=== PATIENT | female | born 1970 | race Caucasian/White ===

== ENCOUNTER 2024-03-08 15:46 | Outpatient (OUT) | payer OTHER, SELFPAY ==
--- NOTE | 2024-03-08 15:54 | MM_ITS ---
Patient Name: SANTA PETERSEN MR#: [id number] : 1970 Exam Date: 03/08/2024 Ordering Doctor: DR JERI HURLEY RADIOLOGY REPORT PROCEDURE: MM TOMOSYNTHESIS SCREENING BI COMPARISON: MG MAMM SCREEN 3D SAMRA CAD, 04/02/2021. MG MAMM SCREEN SAMRA W CAD, 03/19/2020. MG MAMM SCREEN SAMRA W CAD, 09/14/2018. MAMMO SAMRA SCREEN, 03/08/2011. INDICATIONS: Screening Calculator Name NCI Breast Cancer Risk Assessment Tool 5 Year Breast Cancer Risk 2.10% Lifetime Breast Cancer Risk 15.00% Personal Breast Cancer No Personal Ovarian Cancer No Treatments None Family Cancers Mother with breast cancer at age 76; Aunt-maternal with breast cancer at age ~42; Father with prostate/skin cancer at age 65. LOCATION: [facility] BREAST COMPOSITION: The breasts are heterogeneously dense,which may obscure small masses. FINDINGS: DIAGNOSTIC CATEGORY 1--NEGATIVE. RIGHT BREAST: No significant suspicious finding. No significant change has occurred. LEFT BREAST: No significant suspicious finding. No significant change has occurred. RECOMMENDATIONS: ROUTINE MAMMOGRAM AND CLINICAL EVALUATION IN 12 MONTHS. PLEASE NOTE: A NORMAL MAMMOGRAM DOES NOT EXCLUDE THE POSSIBILITY OF BREAST CANCER. A CLINICALLY SUSPICIOUS PALPABLE LUMP SHOULD BE BIOPSIED. Dictated by: Juno Painting M.D. on 03/09/2024 at 09:34 Approved by: Juno Painting M.D. on 03/09/2024 at 09:36
== END 2024-03-08 15:47 | disposition home or self-care (01) ==
LOC: MAMMO 15:49
PROVIDERS: PCP Family Medicine; Visit Provider Family Medicine
DX: Z12.31 Encounter for screening mammogram for malignant neoplasm of breast (principal); Z80.3 Family history of malignant neoplasm of breast; Z80.42 Family history of malignant neoplasm of prostate; Z80.8 Family history of malignant neoplasm of other organs or systems
CPT/HCPCS: 77063; 77067

== ENCOUNTER 2025-04-11 15:17 | Outpatient (OUT) | payer OTHER, SELFPAY ==
--- NOTE | 2025-04-11 15:19 | MM_ITS ---
Patient Name: SANTA PETERSEN MR#: [id number] : 1970 Exam Date: 04/11/2025 Ordering Doctor: KIRK OROZCO RADIOLOGY REPORT PROCEDURE: MM TOMOSYNTHESIS SCREENING BI COMPARISON: MM TOMOSYNTHESIS SCREENING BI, 03/08/2024. MG MAMM SCREEN 3D SAMRA CAD, 04/02/2021. MG MAMM SCREEN SAMRA W CAD, 03/19/2020. MAMMO SAMRA SCREEN, 03/08/2011. INDICATIONS: Screening Calculator Name NCI Breast Cancer Risk Assessment Tool 5 Year Breast Cancer Risk 2.20% Lifetime Breast Cancer Risk 14.80% Personal Breast Cancer No Personal Ovarian Cancer No Treatments None Family Cancers Mother with breast cancer at age 76; Aunt-maternal with breast cancer at age ~42; Father with prostate/skin cancer at age 65. LOCATION: [facility] BREAST COMPOSITION: The breasts are heterogeneously dense, which may obscure small masses. FINDINGS: RIGHT BREAST: No significant suspicious finding. LEFT BREAST: No significant suspicious finding. DIAGNOSTIC CATEGORY 1--NEGATIVE. NO CHANGE FROM COMPARISON ASSESSMENT. RECOMMENDATIONS: ROUTINE MAMMOGRAM AND CLINICAL EVALUATION IN 12 MONTHS. Dictated by: Omar Almendarez MD on 04/11/2025 at 16:22 Approved by: Omar Almendarez MD on 04/11/2025 at 16:23
--- OUTSIDE RECORDS SUMMARY | 2025-04-11 15:20 | XMS_ITS | Clinical Summary ---
Author Organization [place] [facility] Address [facility] [id number] [address] [place] [address] Care Team Providers Care Group Account Director Name Role Phone GennyHeber garcia Primary Care Provider + [phone] Allergies Active AllergyReactionsCriticalityNoted NrgoVptjdqinQzsqudmllebtn42/29/2022 Medications MedicationSigDispense QuantityRefillsLast FilledStart DateEnd DateStatus cetirizine (ZyrTEC) 10 mg tablet daily.Active omeprazole (PriLOSEC) 20 mg capsule Take 1 capsule (20 mg total) by mouth in the morning. 90 capsule 4Active rimegepant (NURTEC ODT) 75 mg tablet,disintegrating Indications:Migraine with aura and without status migrainosus, not intractable Dissolve 1 tablet on tongue daily as needed (migraine). 2 tablet 5Active clobetasoL (TEMOVATE) 0.05 % external solution Indications:PsoriasisAPPLY TOPICALLY TO THE SCALP TWICE DAILY IN THE MORNING AND IN THE EVENING 25 mL 5Active ubrogepant (UBRELVY) 100 mg tablet Indications:Migraine with aura and without status migrainosus, not intractable Take 1 tablet by mouth daily as needed (migraine). 16 tablet 5Active ubrogepant (UBRELVY) 100 mg tablet Indications:Migraine with aura and without status migrainosus, not intractable Take 1 tablet by mouth daily as needed (migraine). 1 tablet Discontinued(Reorder) clobetasoL (TEMOVATE) 0.05 % external solution Indications:PsoriasisAPPLY TOPICALLY TO THE SCALP TWICE DAILY IN THE MORNING AND IN THE EVENING 25 mL 5105/16/2024Discontinued Active Problems ProblemNoted DateDiagnosed VixfSoebhrytw27/29/2023Dysfunctional uterine bleeding 04/08/2022llergic qkjlzhle35/29/2919Qzpnxxtgwuudffpbgdpr86/29/2022eactive airway wnbfpux5404/08/2022Uterine /29/2022soriasis of scalp03/06/2021 Vitamin D /31/2018 Encounters DateTypeDepartmentCare CvkbPkyqvwojacn58/15/2025Refill [facility] [address] [place] [address] Heber Leon, DO Migraine with aura and without status migrainosus, not fbduyzyudlt47/06/2025 Refill [facility] [address] [place] [address] Heber Leon, DO Elnyzpoaz04/30/2025Results Follow-Up [facility] [address] [place] [address] Mikel Storm, VERTICAL PUNCH OPERATOR-ASSISTANT CITY ATTORNEY CBC without diff, Comprehensive metabolic panel, Lipid profile, Thyroid profile includes TSH FT41 3:30 PM EDTOffice Visit [facility] [address] [place] [address] Mikel Storm, VERTICAL PUNCH OPERATOR-ASSISTANT CITY ATTORNEY Well adult exam (Primary Dx); Blood tests for routine general physical examination; Encounter for screening mammogram for malignant neoplasm of breast; Psoriasis; Ylprrjbqlmfjqjpsmbux39/29/5016Wivvec99/15/2025Refill [facility] [address] [place] [address] Heber Leon, DO Psoriasisfrom Last 3 Months Immunizations ImmunizationAdministration DatesNext TgrEcdl3611/30/2018,08/24/2009 Family History Medical HistoryRelationNameCommentsObesityDaughterPolycystic ovary syndrome DaughterChronic infectionsFatherfrom perforated bowel and 2 years later at age 85HypertensionFatherProstate cancerFatherSkin cancerFatherArthritisMother Breast cancerMotherCOPDMotherCrohn's diseaseMotherSarcoidosisMotherFibromyalgia Sister 1No Known ProblemsSister 2No Known ProblemsSonRelationNameStatusComments DaughterAliveFatherDeceasedMotherAliveSister 1AliveSister 2AliveSonAlive Social History Tobacco UseTypesPacks/DayYears UsedDateSmoking Tobacco: FormerCigarettes0.520 04/10/1989 - 04/10/2009Smokeless Tobacco: Never Tobacco Cessation:Counseling Given: Not Answered Alcohol UseStandard Drinks/WeekCommentsYes5 (1 standard drink = 0.6 oz pure alcohol)a weekCLEVELAND CL[facility] UtilitiesAnswerDate RecordedIn the past 12 months has the [employer], gas, oil, or water [employer] threatened to shut off services in your home?No03/01/2024Social Connection and Isolation PanelAnswerDate RecordedIn a typical week, how many times do you talk on the phone with family, friends, or neighbors?More than three times a week04/08/2022How often do you get together with friends or relatives?More than three times a week04/08/2022How often do you attend bahai or druze services?Never2Do you belong to any clubs or organizations such as bahai groups, unions, fraternal or athletic groups, or school groups?Yes04/08/2022How often do you attend meetings of the clubs or organizations you belong to?More than 4 times per year04/08/2022re you , , , , never , or living with a partner? 04/08/2022UDIT-CAnswerDate RecordedQ1: How often do you have a drink containing alcohol?2-3 times a week04/08/2022Q2: How many drinks containing alcohol do you have on a typical day when you are drinking?1 or Q3: How often do you have six or more drinks on one occasion?Never04/08/2022verall Financial Resource Strain (CARDIA)AnswerDate RecordedHow hard is it for you to pay for the very basics like food, housing, medical care, and heating?Not hard at all 03/01/2024HQ-2AnswerDate RecordedTotal Umazf518Finbear river valley hospital [place] of Occupational Health - Occupational Stress QuestionnaireAnswerDate RecordedDo you feel stress - tense, restless, nervous, or anxious, or unable to sleep at night because yourmind is troubled all the time - these days?Not at all04/08/2022 Exercise Vital SignAnswerDate RecordedOn average, how many days per week do you engage in moderate to strenuous exercise (like a brisk walk)?0 days03/01/2024On average, how many minutes do you engage in exercise at this level?0 min 03/01/2024RAPARE - TransportationAnswerDate RecordedIn the past 12 months, has lack of transportation kept you from medical appointments or from getting medications?No03/01/2024In the past 12 months, has lack of transportation kept you from meetings, work, or from getting things needed for daily living?No 03/01/2024Housing InstabilityAnswerDate RecordedAre you worried or concerned that in the next two months you may not have stable housing that you own, rent or stay in as a part of a household?No03/01/2024hildcareAnswerDate RecordedDo problems getting summer child caregiver make it difficult for you to work or study?No 03/01/2024EmploymentAnswerDate RecordedDo you need help finding a local career center and/or a training program?No03/01/2024Hunger ScreeningAnswerDate Recorded Within the past 12 months we worried whether our food would run out before we got money to buy more.Never True03/08/2025Within the past 12 months the food we bought just didn't last and we didn't have money to get more.Never True 03/08/2025Purpose - LifeAnswerDate RecordedI have a purpose and direction in my life.Strongly Agree03/01/2024CommentsUnknownSex and Gender Information ValueDate RecordedSex Assigned at BirthNot on fileLegal RotBpncef30/06/2015 11:33 AM EDTGender IdentityNot on fileSexual OrientationNot on file Last Filed Vital Signs Vital SignReadingTime TakenCommentsBlood Ewurefwd052/7003/08/2025 3:25 PM EDT Fvibf103903/08/2025 3:25 PM UZDQirvzjrlvnm80.3 ??C (97.3 ??F)03/08/2025 3:25 PM EDTRespiratory Oxjm5408 3:25 PM EDTOxygen Uypdpoaqum300%03/08/2025 3:25 PM EDTInhaled Oxygen Concentration--Khjgym69.5 kg (166 lb 6.4 oz)03/08/2025 3:25 PM YTCIsthcf290.6 cm (5' 5.98 )03/08/2025 3:25 PM EDTBody Mass Index26.87 03/08/2025 3:25 PM EDT Plan of Treatment DateTypeDepartmentCare Team (Latest Contact Info)Iagcztoyunr39/14/2026 3:30 PM EDTOffice Visit [facility] [address] [place] [address] Heber Leon, DO [address] [facility], [place] [address] Health MaintenanceDue DateLast DoneCommentsAdult BMI Follow Up Plan1987 Zoster (Shingles) Vaccine (1 of 2)2019Influenza Flglpfm1101/09/2025Mammogram dult BMI Tptnfkuhi78Depression Screening Tobacco Mklijzxlq32olon Cancer Screening 3 Year Hdfnhatgw77TaP,Tdap and Td Vaccines (3 - Td or Tdap) , 08/24/2009Pap SmearDiscontinued Medical Devices Not on file Procedures Procedure NamePriorityDate/TimeAssociated DiagnosisCommentsTHYROID PROFILE INCLUDES TSH BT3Yqqyggn03/29/2025 3:44 PM EDT Blood tests for routine general physical examination LIPID NKWOLBAEnhbztp60/29/2025 3:44 PM EDT Blood tests for routine general physical examination COMPREHENSIVE METABOLIC VNHVYCpwbkio35/29/2025 3:44 PM EDT Blood tests for routine general physical examination CBC (NO DIFF)Gweqotq0103/08/2025 3:44 PM EDT Blood tests for routine general physical examination MAMM SCREENING BILATERAL W KQSDxrizny60/30/2024 1:16 PM EDT Encounter for screening mammogram for malignant neoplasm of breast COLOGUARD NON-XGUFJQTRKOaipplm15/03/2024 8:10 AM EDT Special screening for malignant neoplasm of colon Screen for colon cancer from Last 3 Months or Most Recently Relevant to Health Maintenance Results * (ABNORMAL) Thyroid profile includes TSH FT4 (03/08/2025 3:44 PM EDT)Component ValueRef RangeTest MethodAnalysis TimePerformed AtPathologist SignatureFREE T4 0.700.61 - 1.60 ng/dL03/08/2025 10:46 PM [facility] LABORATORYTSH4.75(H)0.49 - 4.67 uIU/mL03/08/2025 10:46 PM [facility] LABORATORYSpecimen (Source)Anatomical Location / LateralityCollection Method / VolumeCollection TimeReceived TimeBloodVenous blood / Unknown 03/08/2025 3:44 PM EDT1 3:44 PM EDT Narrative Authorizing ProviderResult TypeResult StatusMikel Storm VERTICAL PUNCH OPERATOR-CNPLAB BLOOD ORDERABLESFinal ResultPerforming OrganizationAddressCity/State/ZIP CodePhone Number [facility] [address] [place] [address], [place] [phone] * CBC without diff (03/08/2025 3:44 PM EDT)ComponentValueRef RangeTest Method Analysis TimePerformed AtPathologist SignatureWBC5.24 - 11 x10E9/L1 10:18 PM [facility] LABORATORYRBC Count4.413.8 - 5.2 X10E12/L 03/08/2025 10:18 PM [facility] PDLWRZBKVUQuchldohqv98.111.7 - 15.5 g/dL03/08/2025 10:18 PM [facility] LABORATORYHematocrit 40.835 - 47 %03/08/2025 10:18 PM [facility] IYLBODGLMQVFK4823 - 100 fL03/08/2025 10:18 PM [facility] OTKTWJTCVFQTE72.927 - 34 pg03/08/2025 10:18 PM [facility] XVSPHPJOGBPXRV34.432 - 36 g/dL03/08/2025 10:18 PM [facility] UQVUODRXTYFOJ75.511.5 - 15 %03/08/2025 10:18 PM [facility] LABORATORYPlatelet Rkilh971 150 - 450 X10E9/L1 10:18 PM [facility] LABORATORYMPV 8.17 - 12 fL03/08/2025 10:18 PM [facility] LABORATORYSpecimen (Source)Anatomical Location / LateralityCollection Method / VolumeCollection TimeReceived TimeBloodVenous blood / Yihrnok7303/08/2025 3:44 PM EDT1 3:44 PM EDT Narrative Authorizing ProviderResult TypeResult StatusKyle D Krotzer VERTICAL PUNCH OPERATOR-CNPLAB BLOOD ORDERABLESFinal ResultPerforming OrganizationAddressCity/State/ZIP CodePhone Number [facility] [address] [place] [address], * (ABNORMAL) Lipid profile (03/08/2025 3:44 PM EDT)ComponentValueRef RangeTest MethodAnalysis TimePerformed AtPathologist XpdccznrsJKMCEOXCMOC818(H)150 - 200 mg/dL03/08/2025 10:33 PM [facility] SUKPPNZTWNKLJHVNWHISFY614 27 - 150 mg/dL03/08/2025 10:33 PM [facility] LABORATORYHDL ZCBCYKAQRGT62>39 mg/dL03/08/2025 10:33 PM [facility] LABORATORYComment: HDL <40 mg/dL - High Risk HDL > or = 40mg/dL- Desirable HDL >60 mg/dL - Negative Risk LDL (CALC)167(H)<130 mg/dL03/08/2025 10:33 PM [facility] LABORATORYComment: LDL <100 mg/dL - Desirable LDL >160 mg/dL - High Risk CHOLESTEROL:HDL4.41.0 - 5.010 10:33 PM [facility] LABORATORYVERY LOW JASIVJASZBR536 - 30 mg/dL03/08/2025 10:33 PM [facility] LABORATORYSpecimen (Source)Anatomical Location / Laterality Collection Method / VolumeCollection TimeReceived TimeBloodVenous blood / Rfnzbad0803/08/2025 3:44 PM EDT1 3:44 PM EDT Narrative Authorizing ProviderResult TypeResult StatusKyle D Krotzer VERTICAL PUNCH OPERATOR-CNPLAB BLOOD ORDERABLESFinal ResultPerforming OrganizationAddressCity/State/ZIP CodePhone Number [facility] [address] [place] [address], * Comprehensive metabolic panel (03/08/2025 3:44 PM EDT)ComponentValueRef Range Test MethodAnalysis TimePerformed AtPathologist LvjpvodrvRZJPPO506854 - 146 mmol/L1 10:33 PM [facility] LABORATORYPOTASSIUM4.1 3.5 - 5.0 mmol/L1 10:33 PM [facility] HEZJUMDY10613 - 109 mmol/L1 10:33 PM [facility] LABORATORYCARBON IIIRNOM7532 - 32 mmol/L1 10:33 PM [facility] LABORATORYANION GKH601 - 15 mmol/L1 10:33 PM [facility] LABORATORYBLOOD UREA HFSXSYCV040 - 23 mg/dL03/08/2025 10:33 PM [facility] LABORATORYCREATININE0.680.40 - 1.00 mg/dL 03/08/2025 10:33 PM [facility] LABORATORYComment:METHOD TRACEABLE TO IDNC OMVMQNDOCYEPSRI6410 - 99 mg/dL03/08/2025 10:33 PM [facility] LABORATORYCALCIUM9.78.5 - 10.5 mg/dL03/08/2025 10:[address] LABORATORYTOTAL PROTEIN7.46.0 - 8.0 g/dL03/08/2025 10:33 PM [facility] LABORATORYALBUMIN4.83.2 - 5.3 g/dL 03/08/2025 10:33 PM [facility] LABORATORYALKALINE PHOSPHATASE 7739 - 130 U/L1 10:33 PM [facility] DBIBWYXJWVPPP86 <=41 U/L1 10:33 PM [facility] HOVJUIDOUPLQA62<=31 U/L1 10:33 PM [facility] LABORATORYBILIRUBIN,TOTAL 0.70.3 - 1.2 mg/dL03/08/2025 10:33 PM [facility] EGFR Non-Race Dependent>90>=60 ml/min/1.73sq.m1 10:33 PM [facility] LABORATORYComment: Reported eGFR is based on the CKD-EPI 2020 equation that does not use a race coefficient. Specimen (Source)Anatomical Location / LateralityCollection Method / Volume Collection TimeReceived TimeBloodVenous blood / Ekkrsqf6603/08/2025 3:44 PM EDT 03/08/2025 3:44 PM EDT Narrative Authorizing ProviderResult TypeResult StatusMikel Storm VERTICAL PUNCH OPERATOR-CNPLAB BLOOD ORDERABLESFinal ResultPerforming OrganizationAddressCity/State/ZIP CodePhone Number [facility] [address] [place] [address], * Mammography screening bilateral with CAD (03/09/2024 1:16 PM EDT)Anatomical RegionLateralityModalityBreastBilateralMammography Narrative Authorizing ProviderResult TypeResult StatusDenaminata Leon DOIMG MAMMOGRAPHY ORDERABLESFinal Result * Cologuard [facility] (12/12/2023 8:10 AM EDT)ComponentValueRef RangeTest MethodAnalysis TimePerformed AtPathologist SignatureEXTERNAL COLOGUARDNegative Byxpksju83/07/2024 6:34 PM EDTEXQwikwire (CLIA #:[id number]) Comment: NEGATIVE TEST RESULT. A negative Cologuard result indicates a low likelihood that a colorectal cancer (CRC) or advanced adenoma (adenomatous polyps with more advanced pre-malignant features) ??is present. The chance that a person with a negative Cologuard test has a colorectal cancer is less than 1in 1500 (negative predictive value >99.9%) or has an advanced adenoma is less than 5.3% (negative predictive value 94.7%). These data are based on a prospective cross-sectional study of 10,000individuals at average risk for colorectal cancer who were screened with both Cologuard and colonoscopy. (Timmy Haji. et al, N Engl J Med 2014;370(14):1364-6795) The normal value (reference range) for this assay is negative. COLOGUARD RE-SCREENING RECOMMENDATION: Periodic colorectal cancer screening is an important part ofpreventive healthcare for asymptomatic individuals at average risk for colorectal cancer. ??Following a negative Cologuard result, the [employer] Cancer Society and U.S. Multi-Society Task Force screening guidelines recommend a Cologuard re-screening interval of 3 years. References: [employer] Society Guideline for Colorectal Cancer Screening: https://www.cancer.or g/cancer/pdcnl-tbwibu-aqlhwq/lgdwfcdnb-qqxjdcxea-mxvblxg/acs-recommendations.htm autumn HOGAN, Jairo VAN, Abby SKAGGS, Colorectal Cancer Screening: Recommendations for Physicians and Patients from the U.S. Multi-Society Task Force on Colorectal Cancer Screening , Am J Gastroenterology 2017; 112:0325-2373. TEST DESCRIPTION: Composite algorithmic analysis of stool DNA-biomarkers with hemoglobin immunoassay. ?? Quantitative values of individual biomarkers are not reportable and are not associated with individual biomarker result reference ranges. Cologuard is intended for colorectal cancer screening ofadults of either sex, 45 years or older, who are at average-risk for colorectal cancer (CRC). Cologuard has been approved for use by the U.S. FDA. The performance of Cologuard was established in a cross sectional study of average-risk adults aged 50-84. Cologuard performance in patients ages 45 to 49 years was estimated by sub-group analysis of near-age groups. Colonoscopies performed for a positive result may find as the most clinically significant lesion: colorectal cancer [4.0%], advanced adenoma (including sessile serrated polyps greater than or equal to 1cm diameter) [20%] or non- advanced adenoma [31%]; or no colorectal neoplasia [45%]. These estimates are derived from a prospective cross-sectional screening study of 10,000 individuals at average risk for colorectal cancer who were screened with both Cologuard and colonoscopy. (Timmy Haji. et al, N Engl J Med 2014;370(14):3213-6103.) Cologuard may produce a false negative or false positive result (no colorectal cancer or precancerous polyp present at colonoscopy follow up). A negative Cologuard test result does not guarantee the absence of CRC or advanced adenoma (pre-cancer). The current Cologuard screening interval is every 3 years. ([employer] Society and U.S. Multi-Society Task Force). Cologuard performance data in a 10,000 patient pivotal study using colonoscopy as the reference method can be accessed at the following location: www.[employer].Wantr/results. Additional description of the Cologuard test process, warnings and precautions can be found at www.[employer]asty[employer].com. Specimen (Source)Anatomical Location / LateralityCollection Method / Volume Collection TimeReceived TimeStool specimen (specimen)Rectum structure / Unknown 12/12/2023 8:10 AM EDT12/14/2023 11:20 AM EDT Narrative Authorizing ProviderResult TypeResult StatusDolly Leiva VERTICAL PUNCH OPERATOR-FNPLAB ORDERABLES Final ResultPerforming OrganizationAddressCity/State/ZIP CodePhone Number [employer] (CLIA #:[id number]) [place] [address], from Last 3 Months or Most Recently Relevant to Health Maintenance Insurance Care Teams Team MemberRelationshipSpecialtyStart DateEnd Date Heber Leon DO [address], [place] [address] PCP - GeneralFamily Usrswrnk60/25/22
--- OUTSIDE RECORDS SUMMARY | 2025-04-11 15:20 | XMS_ITS | Clinical Summary ---
Author Organization [facility] Address [address] [place] [address] Care Team Providers Care Central Sterilization Technician Name Role Phone Heber Leon MD Primary Care Provider [phone] Allergies Active AllergyReactionsCriticalityNoted DateCommentsAcetaminophenUnknown 04/08/2022 Medications MedicationSigDispense QuantityRefillsLast FilledStart DateEnd DateStatus cetirizine (ZyrTEC) 10 MG tablet Take 10 mg by mouth in the morning.Active clobetasol (Temovate) 0.05 % cream Apply 1 application topically in the morning and 1 application before bedtime. 06/12/2022ctive clobetasol (Temovate) 0.05 % external solution Apply 1 application topically in the morning and 1 application before bedtime. 12/16/2022ctive omeprazole (PriLOSEC) [address] capsule Indications:LPRD (laryngopharyngeal reflux disease)Take 1 capsule (40 mg) by mouth in the morning. Take before meals. Do not crush or chew.. 90 capsule 01/21/2023ctive famotidine (Pepcid) 20 MG tablet Indications:LPRD (laryngopharyngeal reflux disease)Take 1 tablet (20 mg) by mouth at bedtime. 90 tablet 01/21/2023ctive Active Problems ProblemNoted DateDiagnosed DateChronic drpvjnibep25/13/2023LPRD (laryngopharyngeal reflux disease)01/21/20236230Ezrtro34/29/2023llergic rhinitis 04/08/2022ysfunctional uterine jfcdcgow99/29/3752Tjugqgfeshxmkdpqnqfn45/29/2022 Reactive airway cdnepyy3604/08/2022Uterine aupymwmnl67/29/2022soriasis of scalp 03/06/2021Vitamin D /31/2018 Immunizations ImmunizationAdministration DatesNext DssDdzl6111/30/2018,08/24/2009 Family History Medical HistoryRelationNameCommentsCancerFatherDonald OchsHypertensionFather Patrick OchsAsthmaMotherLeah OchsCOPDMotherLeah OchsCancerMotherLeah OchsCrohn's diseaseMotherLeah OchsSarcoidosisMotherLeah OchsRelationNameStatusCommentsFather Patrick OchsMotherLeah Bernarda Social History Tobacco UseTypesPacks/DayYears UsedDateSmoking Tobacco: FormerCigarettes0.521 05/27/1987 - 05/11/2008Smokeless Tobacco: Never Tobacco Cessation:Counseling Given: Not Answered Alcohol UseStandard Drinks/HtrdCwkzrelkTcv63 (1 standard drink = 0.6 oz pure alcohol)CommentsUnknownSex and Gender InformationValueDate RecordedSex Assigned at BirthNot on fileLegal PzmTpnsoy21/15/2023 10:09 PM EDTGender IdentityNot on fileSexual OrientationNot on file Last Filed Vital Signs Vital SignReadingTime TakenCommentsBlood Opecktaw528/6909 3:06 PM EDT Pulse--Temperature--Respiratory Rate--Oxygen Saturation--Inhaled Oxygen Concentration--Xzgkkd61.5 kg (162 lb)01/21/2023 3:06 PM FILFeugim333.6 cm (5' 6 )01/21/2023 3:06 PM EDTBody Mass Index26.15001/21/2023 3:06 PM EDT Plan of Treatment Not on file Insurance * Guarantor: Evelyn AquinoAccount TypeRelation to PatientDate of BirthPhone Billing AddressPersonal/FmuubvAiag02/05/1971 [facility] [address] Care Teams Team MemberRelationshipSpecialtyStart DateEnd Date Heber Leon MD PCP - GeneralFamily Medicine01/21/23
--- OUTSIDE RECORDS SUMMARY | 2025-04-11 15:30 | XMS_ITS | CCD ---
Author Organization [facility] CliniSywv Care Team Providers Care Cigar Brander Name Role Phone DR EDITH MARTINEZ Attending Unavailable FURLONG, DR HEBER Khan Primary Care Unavailable MICHELLE, DR SHARMA Admitting Unavailable ZIEBER, DR JUNO Haq Consulting Unavailable MICHELLE, DR DOLLY Haq Consulting Unavailable DINAH ZAVALA Attending Unavailable LUCAS, DINAH Consulting Unavailable DINAH ZAVALA Admitting Unavailable FURLONG, DR HEBER Khan Primary Care Unavailable Furlong Heber GOLD Primary Care Provider Furlong Heber GOLD Primary Care Provider HEBER LEON Attending Unavailable PIEDADLONGHEBER Referring Unavailable FURLONG, HEBER Khan Primary Care Unavailable FURLONG, HEBER Khan Referring Unavailable FURLONG, HEBER Khan Primary Care Unavailable Furlong Heber GOLD Primary Care Provider HEBER LEON Attending Unavailable HEBER LEON Referring Unavailable FURLOCHITO, HEBER Khan Primary Care Unavailable KIRK OROZCO Attending Unavailable LUIS FERNANDONGHEBER Referring Unavailable PIEDADLONGHEBER Primary Care Unavailable Allergies Allergy ClassificationReported Allergen(s)Allergy TypeDate of OnsetReaction(s) Facility (1 source)AcetaminophenDrug AllergyThe [facility] Repository (20 sources)Acetaminophen; Translations: [ACETAMINOPHEN]Drug Lxhpakm40-93-1862 [facility] Medications Current Medications MedicationDrug Class(es)DatesSig (Normalized)Sig (Original)cetirizine hydrochloride 10 mg oral tablet (18 sources)Histamine-1 Receptor Antagonistcetirizine (ZyrTEC) 10 mg tablet daily. Activeclobetasol propionate 0.5 mg/ml topical solution (20 sources)CorticosteroidStart: 68-30-7158Kztzakjyhl 0.05 % solution Active TOPICAL June 07, 2024 12:00amStart: 03-23-2023 End: 35-78-8989cxnguyanzO (TEMOVATE) 0.05 % external solution Indications: Psoriasis APPLY TOPICALLY TO THE SCALP TWICE DAILY IN THE MORNING AND IN THE EVENING 25 mL 1 03/16/2025 ActiveStart: 06-12-2022 End: 32-44-5885qeronlhwwI (TEMOVATE) 0.05 % cream Indications: Psoriasis clobetasol 0.05 % topical cream PATY THIN LAYER EXT AA BID Strength: 0.05 % 30 g 1 06/12/2022 03/08/2025 Discontinued (Alternate therapy)omeprazole 20 mg delayed release oral capsule (11 sources)Proton Pump InhibitorStart: 34-51-5655iptl 1 capsule by mouth in the morningomeprazole (PriLOSEC) 20 mg capsule Take 1 capsule (20 mg total) by mouth in the morning. 90 capsule 2 03/01/2024 Activeondansetron 4 mg disintegrating oral tablet (1 source)Serotonin-3 Receptor AntagonistStart: 71-41-9673ztil 1 tablet by mouth every eight hours as needed for nausea and vomitingOndansetron 4 mg tablet,disintegrating Active 4 MG PO Every 8 hours as needed for nausea and vomiting 15 June 07, 2024 12:00amoseltamivir 75 mg oral capsule (1 source)Neuraminidase InhibitorStart: 44-04-6473remx 1 capsule by mouth twice dailyOseltamivir 75 mg capsule Active 75 MG PO Twice daily 10 June 07, 2024 12:00amrimegepant 75 mg disintegrating oral tablet (9 sources)Start: 11-69-8583xazbbirvmo (NURTEC ODT) 75 mg tablet,disintegrating Indications: Migraine with aura and without status migrainosus, not intractable Dissolve 1 tablet on tongue daily as needed (migraine). 2 tablet 05/13/2024 Activeubrogepant 100 mg oral tablet (9 sources)Start: 03-75-9580prbb 1 tablet by mouth once daily as needed ubrogepant (UBRELVY) 100 mg tablet Indications: Migraine with aura and without status migrainosus, not intractable Take 1 tablet by mouth daily as needed (migraine). 1 tablet 05/13/2024 Active Problems Active Problems Problem ClassificationProblemDateDocumented DateEpisodic/ChronicAsthma (18 sources)Reactive airway disease; Translations: [Unspecified asthma, uncomplicated]Onset: 429412-08-8853JpquggdLtsqvblxl of lipid metabolism (20 sources)Hypercholesterolemia; Translations: [Pure hypercholesterolemia, unspecified]Onset: 092570-19-7261KorfjaoQnxivdzvyq disorders (1 source)Laryngopharyngeal reflux; Translations: [Gastro-esophageal reflux disease without esophagitis]05-36-4653GnfkjwpQpzndxtv; including migraine (3 sources)Migraine with aura; Translations: [Migraine with aura, not intractable, without status migrainosus]Onset: hronic Nutritional deficiencies (18 sources)Vitamin D deficiency; Translations: [Vitamin D deficiency, unspecified]Onset: 567089-11-3035HclwtfbKtkwa female genital disorders (18 sources)Abnormal uterine bleeding; Translations: [Other specified abnormal uterine and vaginal bleeding]Onset: 002959-90-8827GparywaPijeu inflammatory condition of skin (19 sources)Scalp psoriasis; Translations: [Psoriasis, unspecified]Onset: 652819-37-8668AumayduZbgug inflammatory condition of skin (13 sources)Psoriasis; Translations: [Psoriasis, unspecified]26-78-4739Enxloha Other inflammatory condition of skin (1 source)Psoriasis, unspecified; Translations: [Psoriasis, unspecified]Onset: 67-30-8641DjyiaoaSohph screening for suspected conditions (not mental disorders or infectious disease) (7 sources)Encounter for screening mammogram for malignant neoplasm of breast; Translations: [Patient encounter status]Onset: 19-40-6743YfnhgzfpGnpjm skin disorders (1 source)Loss of hair; Translations: [Nonscarring hair loss, unspecified] 71-44-0751XihkuazyKjbif skin disorders (1 source)Nonscarring hair loss, unspecified; Translations: [Nonscarring hair loss, unspecified]Onset: 66-89-3373NqyrnnfySbbap upper respiratory disease (18 sources)Allergic rhinitis; Translations: [Allergic rhinitis, unspecified] Onset: 837877-87-0306NhtfinoJogcepen codes; unclassified (1 source)Family history of malignant neoplasm of breast; Translations: [FAMILY HX MALIG NEOPLASM OF BREAST]Onset: 55-38-6357ZajmwycgBbqdpxcu codes; unclassified (1 source)Family history of malignant neoplasm of prostate; Translations: [FAMILY HX MALIG NEOPLASM PROSTATE]Onset: 28-22-6957RfhltpwnDwmgzqpp codes; unclassified (1 source)Family history of malignant neoplasm of other organs or systems; Translations: [FAM HX MALIG NEOPLASM OTH ORGN/SYS]Onset: 55-21-0011Viafdudw Unclassified (2 sources)CONTACT W/AND (SUSP) EXPOS COVID-19; Translations: [CONTACT W/AND (SUSP) EXPOS COVID-19]Onset: 49-24-7629Pmjzysrsljns (1 source)wellnessOnset: 16-84-8567Pxdtz infection (1 source)COVID-19; Translations: [COVID-19]Onset: 05-22-2021 Past or Other Problems Problem ClassificationProblemDateDocumented DateEpisodic/ChronicBenign neoplasm of uterus (18 sources)Uterine leiomyoma; Translations: [Leiomyoma of uterus, unspecified] Onset: 756654-56-8380SmdepitwCtkp disorders (18 sources)Mood disordersOnset: 05-13-2024 Resolved: Other nutritional; endocrine; and metabolic disorders (1 source)Overweight; Translations: [Overweight]74-70-5374ZmuwqgscDgyof upper respiratory disease (18 sources)Dysphonia; Translations: [Dysphonia]Onset: EpisodicSpondylosis; intervertebral disc disorders; other back problems (3 sources)Neck pain; Translations: [Cervicalgia]Onset: EpisodicUnclassified (1 source)CONTACT W/AND (SUSP) EXPOS COVID-19; Translations: [CONTACT W/AND (SUSP) EXPOS COVID-19]Onset: 74-57-2178Czbgqzqwppuf (18 sources)Onset: Results Test NameValueInterpretationReference RangeFacilityCBC (NO DIFF)on 03-08-2025 Erythrocyte distribution width (RBC) [Ratio]13.5 %Fzqsnw92.5-15[facility]ulatory PPGComment on above:Performed By: #### CBC #### [facility] ([facility]) [address] [place] [address] VIRHematocrit (Bld) [Volume fraction]40.8 %Vssigh63-66SzwBkelhs Hospital Ambulatory PPGComment on above:Performed By: #### CBC #### [facility] ([facility]) [address] [place] [address] VIRHemoglobin (Bld) [Mass/Vol]14.1 g/kDXxzmva49.7-15.5PMemorial Health [facility] Ambulatory PPGComment on above:Performed By: #### CBC #### [facility] ([facility]) [address] [place] [address] VIRMCH (RBC) [Entitic mass]31.9 agIgwbcf85-20OluNskxxs Hospital Ambulatory PPGComment on above:Performed By: #### CBC #### [facility] ([facility]) [address] [place] [address] VIRMCHC (RBC) [Mass/Vol]34.4 g/cSOcgoox67-69ZxuBocwem Hospital Ambulatory PPGComment on above:Performed By: #### CBC #### [facility] ([facility]) [address] [place] [address] VIRMCV (RBC) [Entitic vol]93 sKExdmnl95-579PpuKogjgs Hospital Ambulatory PPGComment on above:Performed By: #### CBC #### [facility] ([facility]) [address] [place] [address] VIRPlatelet mean volume (Bld) [Entitic vol]8.1 fLNormal7-12 [facility] Ambulatory PPGComment on above:Performed By: #### CBC #### [facility] ([facility]) [address] [place] [address] VIRPlatelets (Bld) [#/Vol]224 10*3/hXZguukr380-960FfdLlhmjg Hospital Ambulatory PPGComment on above:Performed By: #### CBC #### [facility] ([facility]) [address] [place] [address] VIRRBC COUNT4.41 X10E12/LNormal3.8-5.2PMemorial Health System [facility] Ambulatory PPGComment on above:Performed By: #### CBC #### [facility] ([facility]) [address] [place] [address] VIRWBC (Bld) [#/Vol]5.2 10*3/Normal4-11[facility] Ambulatory PPGComment on above:Performed By: #### CBC #### [facility] ([facility]) [address] [place] [address] VIRCBC without diffon 44-05-1046Ofkalgslwyx distribution width (RBC) [Ratio]13.5 %11.5 - 15 %[facility] HospitalHematocrit (Bld) [Volume fraction]40.8 %35 - 47 %[facility] HospitalHemoglobin (Bld) [Mass/Vol]14.1 g/dL11.7 - 15.5 g/dLHocking Valley Community HospitalInterpretation and review of laboratory resultsNoWilson Medical CenterH (RBC) [Entitic mass]31.9 pg27 - 34 [facility] HospitalMCHC (RBC) [Mass/Vol]34.4 g/dL32 - 36 g/dL [facility] HospitalMCV (RBC) [Entitic vol]93 fL80 - 100 [facility]-SullivanPlatelet mean volume (Bld) [Entitic vol]8.1 fL7 - 12 [facility]-SullivanPlatelets (Bld) [#/Vol]224 10*3/uLHocking Valley Community HospitalRBC (Bld) [#/Vol] 4.41 10*6/uLHocking Valley Community HospitalWBC LM Ql (Sput)5.2PSuburban Community HospitalCOMPREHENSIVE METABOLIC PANELon 61-66-7938Ohikqps [Mass/Vol]4.8 g/dLNormal3.2-5.3PMemorial Health [facility] Ambulatory PPGComment on above:Performed By: #### CMP #### [facility] ([facility]) [address] [place] [address] VIRALP [Catalytic activity/Vol]77 U/SErdltw19-326RzcWwcucr Hospital Ambulatory PPGComment on above:Performed By: #### CMP #### [facility] ([facility]) [address] [place] [address] VIRALT [Catalytic activity/Vol]23 U/LNormal<=31PMemorial Health System [facility] Ambulatory PPGComment on above:Performed By: #### CMP #### [facility] ([facility]) [address] [place] [address] VIRAnion gap [Moles/Vol]10 mmol/LNormal5-15ProMercy Health St. [facility] Ambulatory PPGComment on above:Performed By: #### CMP #### [facility] ([facility]) [address] [place] [address] VIRAST [Catalytic activity/Vol]19 U/LNormal<=41[facility] Ambulatory PPGComment on above:Performed By: #### CMP #### [facility] ([facility]) [address] [place] [address] VIRBilirubin [Mass/Vol]0.7 mg/dLNormal0.3-1.2PMemorial Health [facility] Ambulatory PPGComment on above:Performed By: #### CMP #### [facility] ([facility]) [address] [place] [address] VIRCalcium [Mass/Vol]9.7 mg/dLNormal8.5-10.5PMemorial Health System [facility] Ambulatory PPGComment on above:Performed By: #### CMP #### [facility] ([facility]) [address] [place] [address] VIRChloride [Moles/Vol]104 mmol/QJjzxzf28-463HhpOkgcqq Hospital Ambulatory PPGComment on above:Performed By: #### CMP #### [facility] ([facility]) [address] [place] [address] VIRCO2 [Moles/Vol]27 mmol/KMinmsf21-63PgwGzmdqs Hospital Ambulatory PPGComment on above:Performed By: #### CMP #### [facility] ([facility]) [address] [place] [address] VIRCreatinine [Mass/Vol]0.68 mg/dLNormal0.40-1.00[facility] Ambulatory PPGComment on above:Result Comment: METHOD TRACEABLE TO IDMS STANDARDPerformed By: #### CMP #### [facility] ([facility]) [address] [place] [address] VIREGFR (CKD-EPI) NON-RACE DEPENDENT>^90Normal>=60[facility] Ambulatory PPGComment on above:Result Comment: Reported eGFR is based on the CKD-EPI 2020 equation that does not use a race coefficient.Performed By: #### CMP #### [facility] ([facility]) [address] [place] [address] VIRGlucose [Mass/Vol]98 mg/pJMczubn59-09LueHqbrnd Hospital Ambulatory PPGComment on above:Performed By: #### CMP #### [facility] ([facility]) [address] [place] [address] VIRPotassium [Moles/Vol]4.1 mmol/LNormal3.5-5.0[facility] Ambulatory PPGComment on above:Performed By: #### CMP #### [facility] ([facility]) [address] [place] [address] VIRProtein [Mass/Vol]7.4 g/dLNormal6.0-8.0[facility] Ambulatory PPGComment on above:Performed By: #### CMP #### [facility] ([facility]) [address] [place] [address] VIRSodium [Moles/Vol]141 mmol/TAwkdou183-925AfsMfiptc Hospital Ambulatory PPGComment on above:Performed By: #### CMP #### [facility] ([facility]) [address] [place] [address] VIRUrea nitrogen [Mass/Vol]17 mg/dLNormal5-23[facility] Ambulatory PPGComment on above:Performed By: #### CMP #### [facility] ([facility]) [address] [place] [address] VIRComprehensive metabolic panelon 90-72-8620Qbjkvai [Mass/Vol] 4.8 g/dL3.2 - 5.3 g/dLProNorth [facility] Medical Center Health SystemALP [Catalytic activity/Vol]77 U/L 39 - 130 U/[facility] Health SystemALT No additional P-5'-P [Catalytic activity/Vol]23 U/LNINF - 31 U/LProMedica Health SystemAnion gap [Moles/Vol]10 mmol/L5 - 15 mmol/LPrSt. Anthony Summit Medical Center Health SystemAST [Catalytic activity/Vol]19 U/LNINF - 41 U/LProMedica Health SystemBilirubin [Mass/Vol]0.7 mg/dL0.3 - 1.2 mg/dL ProMedic Health SystemCalcium [Mass/Vol]9.7 mg/dL8.5 - 10.5 mg/dLProMartins Ferry Hospital SystemChloride [Moles/Vol]104 mmol/L98 - 109 mmol/LProMedica Health SystemCO2 [Moles/Vol]27 mmol/L22 - 32 mmol/[facility] Hospitalica Health SystemCreatinine [Mass/Vol]0.68 mg/dL0.40 - 1.00 mg/dLMcCullough-Hyde Memorial Hospital SystemComment on above: METHOD TRACEABLE TO IDMS STANDARDEGFR Non-Race Dependent- [facility] Health SystemComment on above:Reported eGFR is based on the CKD-EPI 2020 equation that does not use a race coefficient. Glucose [Mass/Vol]98 mg/dL65 - 99 mg/dLMcCullough-Hyde Memorial Hospital SystemInterpretation and review of laboratory resultsNormalMcCullough-Hyde Memorial Hospital SystemPotassium [Moles/Vol] 4.1 mmol/L3.5 - 5.0 mmol/LProMedica Health SystemProtein [Mass/Vol]7.4 g/dL6.0 - 8.0 g/dLProMartins Ferry Hospital SystemSodium [Moles/Vol]141 mmol/L134 - 146 mmol/L ProMSt. Cloud Hospital SystemUrea nitrogen [Mass/Vol]17 mg/dL5 - 23 mg/dLHocking Valley Community HospitalLIPID PROFILEon 95-55-5979Gvmwxlboqnf [Mass/Vol]246 mg/dLHigh 150-200[facility] Ambulatory PPGComment on above:Performed By: #### LIPR #### [facility] ([facility]) [address] [place] [address] VIRCholesterol in HDL [Mass/Vol]56 mg/dLNormal>39ProMercy Health St. [facility] Ambulatory PPGComment on above:Result Comment: HDL <40 mg/dL - High Risk HDL > or = 40mg/dL- Desirable HDL >60 mg/dL - Negative RiskPerformed By: #### LIPR #### [facility] ([facility]) [address] [place] [address] VIRCholesterol in LDL [Mass/Vol]167 mg/dLHigh<130[facility] Ambulatory PPGComment on above:Result Comment: LDL <100 mg/dL - Desirable LDL >160 mg/dL - High RiskPerformed By: #### LIPR #### [facility] ([facility]) [address] [place] [address] VIRCHOLESTEROL:HDL4.0Jivuke8.0-5.0[facility] Ambulatory PPGComment on above:Performed By: #### LIPR #### [facility] ([facility]) [address] [place] [address] VIRTriglyceride [Mass/Vol]115 mg/tSCeffva21-618GreLehygc Hospital Ambulatory PPGComment on above:Performed By: #### LIPR #### [facility] ([facility]) [address] [place] [address] VIRVERY LOW NLIFIWZQXOJ89 mg/dLNormal0-30[facility] Ambulatory PPGComment on above:Performed By: #### LIPR #### [facility] ([facility]) [address] [place] [address] VIRLipid profileon 00-36-0839Gzsydppbihb [Mass/Vol]246 mg/dL Ywac455 - 200 mg/dLHocking Valley Community HospitalCholesterol in HDL [Mass/Vol]56 mg/dL 39 - PINF mg/dLHocking Valley Community HospitalComment on above:HDL <40 mg/dL - High Risk HDL > or = 40mg/dL- Desirable HDL >60 mg/dL - Negative Risk Cholesterol in HDL [Mass/Vol]4.4 mg/dL1.0 - 5.0[facility] Cholesterol in LDL [Mass/Vol]167 mg/dLHighNINF - 130 mg/dLHocking Valley Community HospitalComment on above:LDL <100 mg/dL - Desirable LDL >160 mg/dL - High Risk Cholesterol in VLDL [Mass/Vol]23 mg/dL0 - 30 mg/dLHocking Valley Community Hospital Interpretation and review of laboratory resultsAbnoECU Health Duplin Hospital Triglyceride [Mass/Vol]115 mg/dL27 - 150 mg/dLHocking Valley Community HospitalNo Panel Informationon 21-01-4051ZhbXygugnHocking Valley Community HospitalTHYROID PROFILE INCLUDES TSH FT4 on 89-90-3296Fcln T4 [Mass/Vol]0.70 ng/dLNormal0.61-1.60[facility] Ambulatory PPGComment on above:Performed By: #### THYR #### [facility] ([facility]) [address] [place] [address] VIRTSH4.75 uIU/mLHigh0.49-4.67[facility] PPG Comment on above:Performed By: #### THYR #### [facility] ([facility]) [address] [place] [address] VIRThyroid profile includes TSH FT4on 76-67-2378Snpk T4 [Mass/Vol]0.70 ng/dL0.61 - 1.60 ng/dLHocking Valley Community HospitalInterpretation and review of laboratory resultsAbnoECU Health Duplin HospitalTS Qn4.75 m[IU]/L VA hospitalXR SPINE CERVICAL 3 VWS OR LESSon 90-88-5733PF SPINE CERVICAL 3 VWS OR LESSXR SPINE CERVICAL 3 VWS OR LESS 3 views of the cervical spine dated 09/01/2024 at 11:58 AM INDICATION: Pain in the right neck. FINDINGS: No comparisons available. Degenerative disc disease and small osteophytes most prominent at C5-6. Multilevel facet joint arthropathy. No acute fractures or subluxations. No prevertebral soft tissue swelling. IMPRESSION: 1. Multilevel degenerative disc disease most prominent at C5-6. 2. Multilevel facet joint arthropathy. 3. No acute fractures or subluxations seen. Finalized by Roni Hi MD on 09/06/2024 12:56 PMNormalMemorial Health System WITH REFLEXon 70-58-0372KMI4.17 uIU/mLNormal0.49-4.67[facility] HospitalComment on above:Performed By: #### TSHR #### [facility] ([id number]) [address] [facility] [address], [address] [place], [place] [address]Diyrk-80 PCR (CVDTB)on 60-81-6233VZPS-CoV-2 (COVID-19) RNA SAMIRA+probe Ql (Unsp spec)DetectedCritically abnormalNOT DETECTEDThe [facility] Medical CenterComment on above:Result Comment: This test is not yet approved or cleared by the [place] FDA. When there are no FDA-approved or cleared tests available, and other criteria are met, FDA can make tests available under an emergency access mechanism called an Emergency Use Authorization (EUA). The EUA for this test is supported by the Scientific Database Curator of Health and Human Service's (HHS's) declaration that circumstances exist to justify the emergency use of in vitro diagnostics for the detection and/or diagnosis of the virus that causes COVID-19. This EUA will remain in effect (meaning this test can be used) for the duration of the COVID-19 declaration justifying emergency of IVDs, unless it is terminated or revoked by FDA (after which the test may no longer be used). Performed By: #### CVDTBH #### [facility] [address] [id number] Riaz PlasenciaMG MAMM SCREEN 3D SAMRA CADon 10-72-0718KF MAMM SCREEN 3D SAMRA CAD Patient: EVELYN AQUINO Exam Date: 04/02/2021 : 1970 Gender:F Ordering : DR DOLLY MARTINEZ Admission #: [id number] Family : Order #: [id number] CLICK HERE TO VIEW EXAM RADIOLOGY REPORT PROCEDURE: MAMMOGRAM SCREENING 3D BILATERAL CAD COMPARISON: MG MAMM SCREEN SAMRA W CAD, 03/19/2020. MG MAMM SCREEN SAMRA W CAD, 09/14/2018. INDICATIONS: Screening mammography Calculator Name NCI Breast Cancer Risk Assessment Tool 5 Year Breast Cancer Risk 1.90% Lifetime Breast Cancer Risk 15.80% Personal Breast Cancer No Personal Ovarian Cancer No Treatments None Family Cancers Mother with breast cancer at age 76; Aunt-maternal with breast cancer at age 42; Father with prostate/skin cancer at age 65. LOCATION: [facility] BREAST COMPOSITION: Extremely dense, which lowers the sensitivity of mammography. FINDINGS: DIAGNOSTIC CATEGORY 1--NEGATIVE ASSESSMENT. RIGHT BREAST: No significant suspicious finding. No significant change has occurred. LEFT BREAST: No significant suspicious finding. No significant change has occurred. RECOMMENDATIONS: ROUTINE MAMMOGRAM AND CLINICAL EVALUATION IN 12 MONTHS. PLEASE NOTE: A NORMAL MAMMOGRAM DOES NOT EXCLUDE THE POSSIBILITY OF BREAST CANCER. A CLINICALLY SUSPICIOUS PALPABLE LUMP SHOULD BE BIOPSIED. Dictated by: Juno Painting M.D. on 04/03/2021 at 13:08 Approved by: Juno Painting M.D. on 04/03/2021 at 13:20[facility] HospitalCOMPREHENSIVE METABOLIC PANELon 45-47-8188Onzacbi [Mass/Vol]4.6 g/dL Normal3.6-5.1Quest DiagnosticsComment on above:Performed By: #### 80626, 5193, 97915 #### [facility] [address], [address] [place] [id number] [employer]: Adrian Montemayor MDAlbumin/Globulin [Mass ratio]2.0 {ratio}Normal 1.0-2.5Quest DiagnosticsComment on above:Performed By: #### 75075, 6650, 47076 #### [facility] of [address], [address] [place] [address] [employer]: Adrian Montemayor MDALP [Catalytic activity/Vol]85 U/PHriurq93-519 [facility] DiagnosticsComment on above:Performed By: #### 12270, 7600, 96948 #### [facility] of [address], [address] [place] [address] [employer]: Adrian Montemayor MDALT [Catalytic activity/Vol]29 U/LNormal6-29 [facility] DiagnosticsComment on above:Performed By: #### 08174, 7600, 49430 #### [facility] of [address] [address], [address] [place] [address] [employer]: Adrian Montemayor MDAST [Catalytic activity/Vol]20 U/KOiattm35-39 Quest DiagnosticsComment on above:Performed By: #### 78486, 7600, 82726 #### [facility] of [address], [address] [place] [address] [employer]: Adrian Montemayor MDBilirubin [Mass/Vol]0.4 mg/dLNormal0.2-1.2 [facility] DiagnosticsComment on above:Performed By: #### 75018, 7600, 59258 #### [facility] of [address], [address] [place] [address] [employer]: Adrian Montemayor MDBUN/CREATININE RATIONOT APPLICABLENormal6-22 [facility] DiagnosticsComment on above:Performed By: #### 71473, 7600, 70585 #### [facility] of [address], [address] [place] [address] [employer]: Adrian Montemayor MDCalcium [Mass/Vol]9.5 mg/dLNormal8.6-10.4Quest DiagnosticsComment on above:Performed By: #### 06264, 7600, 03946 #### [facility] of [address], [address] [place] [address] [employer]: Adrian NICOLEhloride [Moles/Vol]105 mmol/GFlwwcn94-099 [facility] DiagnosticsComment on above:Performed By: #### 44595, 7600, 97738 #### [facility] [place] [address] [employer]: Adrian Montemayor MDCO2 [Moles/Vol]24 mmol/YLfzgmr65-56Cjswm DiagnosticsComment on above:Performed By: #### 75992, 7600, 57467 #### [facility] [place] [address] [employer]: Adrian NICOLEreatinine [Mass/Vol]0.75 mg/dLNormal0.50-1.05 Quest DiagnosticsComment on above:Result Comment: For patients >49 years of age, the reference limit for Creatinine is approximately 13% higher for people identified as -Burkinan.Performed By: #### 36252, 0, 42571 #### [facility] [place] [address] [employer]: Adrian Montemayor MDeGFR NON-AFR. WPREJBZH19 mL/min/1.50n1Wcvntz> OR = 60Quest DiagnosticsComment on above:Performed By: #### 50072, 7600, 94598 #### [facility] [place] [address] [employer]: Adrian Montemayor MDGFR/1.73 sq M.predicted among blacks MDRD (S/P/Bld) [Vol rate/Area]107 mL/min/{1.73_m2}Normal> OR = 60[facility] Comment on above:Performed By: #### 46844, 7600, 50925 #### [facility] [place] [address] [employer]: Adrian Montemayor MDGlobulin (S) [Mass/Vol]2.3 g/dLNormal1.9-3.7 Quest DiagnosticsComment on above:Performed By: #### 00043, 7600, 98061 #### [facility] of [address], [address] [place] [address] [employer]: Adrian Montemayor MDGlucose [Mass/Vol]92 mg/tWCpwvzo01-17Gxhzs DiagnosticsComment on above:Result Comment: Fasting reference intervalPerformed By: #### 82680, 7600, 09593 #### [facility] of [address], [address] [place] [address] [employer]: Adrian Montemayor MDPotassium [Moles/Vol]4.0 mmol/LNormal3.5-5.3 Quest DiagnosticsComment on above:Performed By: #### 89445, 7600, 07321 #### [facility] of [address], [address] [place] [address] [employer]: Adrian Montemayor MDProtein [Mass/Vol]6.9 g/dLNormal6.1-8.1Quest DiagnosticsComment on above:Performed By: #### 07696, 7600, 61033 #### [facility] of [address], [address] [place] [address] [employer]: Adrian Montemayor MDSodium [Moles/Vol]140 mmol/LUzucco167-003Svjlu DiagnosticsComment on above:Performed By: #### 22146, 7600, 15516 #### [facility] of [place] [address] [employer]: Adrian Montemayor MDUrea nitrogen [Mass/Vol]21 mg/dLNormal7-25 Quest DiagnosticsComment on above:Performed By: #### 14370, 7600, 35847 #### [facility] of [place] [address] [employer]: Adrian Montemayor MDLIPID PANEL, STANDARDon 52-99-0310Qklerfrnndv [Mass/Vol]247 mg/dLHigh<200Quest DiagnosticsComment on above:Order Comment: FASTING:YES FASTING: YESPerformed By: #### 50044, 7600, 01352 #### [facility] [address], [address] [place] [address] [employer]: Adrian NICOLEholesterol in HDL [Mass/Vol]49 mg/dLLow> OR = 50Quest DiagnosticsComment on above:Order Comment: FASTING:YES FASTING: YESPerformed By: #### 26179, 7600, 31244 #### [facility] [address], [address] [place] [address] [employer]: Adrian NICOLEholesterol in LDL [Mass/Vol]157 mg/dLHigh [facility] DiagnosticsComment on above:Order Comment: FASTING:YES FASTING: YESResult Comment: Reference range: <100 Desirable range <100 mg/dL for primary prevention; <70 mg/dL for patients with CHD or diabetic patients with > or = 2 CHD risk factors. LDL-C is now calculated using the Consuelo calculation, which is a validated novel method providing better accuracy than the Friedewald equation in the estimation of LDL-C. Helder RECINOS et al. MARIO. 2013;310(19): 4532-5854 (http://education.YYoga.Panvidea/faq/PBK665)Performed By: #### 31012, 7600, 41191 #### [facility] [address], [address] [place] [address] [employer]: Adrian King.total/Cholesterol in HDL [Mass ratio]5.0 {ratio}High<5.0Quest DiagnosticsComment on above:Order Comment: FASTING:YES FASTING: YESPerformed By: #### 41100, 7600, 78814 #### [facility] [address], [address] [place] [address] [employer]: Adrian REBOLLAR HDL GFRERNVBJRU563 mg/dL (calc)High<130 Quest DiagnosticsComment on above:Order Comment: FASTING:YES FASTING: YESResult Comment: For patients with diabetes plus 1 major ASCVD risk factor, treating to a non-HDL-C goal of <100 mg/dL (LDL-C of <70 mg/dL) is considered a therapeutic option.Performed By: #### 62010, 7600, 62941 #### [facility] [address], [address] [place] [address] [employer]: Adrian Montemayor MDTriglyceride [Mass/Vol]244 mg/dLHigh<150Quest DiagnosticsComment on above:Order Comment: FASTING:YES FASTING: YESResult Comment: If a non-fasting specimen was collected, consider repeat triglyceride testing on a fasting specimen if clinically indicated. Mandie et al. J. of Clin. Lipidol. 2015;9:129-169.Performed By: #### 24395, 7600, 18401 #### [facility] [address], [address] [place] [address] [employer]: Adrian Montmeayor MDVITAMIN D,25-OH,TOTAL,IAon 38-32-8753NDOJLMT D,25-OH,TOTAL,IA27 ng/sVYky86-272Czrpf DiagnosticsComment on above:Result Comment: Vitamin D Status 25-OH Vitamin D: Deficiency: <20 ng/mL Insufficiency: 20 - 29 ng/mL Optimal: > or = 30 ng/mL For 25-OH Vitamin D testing on patients on D2-supplementation and patients for whom quantitation of D2 and D3 fractions is required, the QuestAssureD(TM) 25-OH VIT D, (D2,D3), LC/MS/MS is recommended: order code 87141 (patients >2yrs). See Note 1 Note 1 For additional information, please refer to http://education.YYoga.Panvidea/faq/UKJ134 (This link is being provided for informational/ educational purposes only.)Performed By: #### 37445, 7600, 80570 #### [facility] [address], [address] [place] [address] [employer]: Adrian Montemayor MD Vital Signs Date TimeVital SignValuePerforming UpvlgmgkyFpcraqbs16-60-0379 15:25-0400Body oiroon734.6 cmKirk Orozco APRN-SUPERVISOR PARTICLEBOARD Work Phone: [facility]10-29-2025 15:25-0400Body mass index (BMI) [Ratio]26.87 kg/m2Kirk Shawzer RIDER TICKET WORKER-SUPERVISOR PARTICLEBOARD Work Phone: [facility] [employer] Nnlzcv81-43-4299 15:25-0400Body ggywtgwqpfd84.3 [degF]Kirk Shawzer RIDER TICKET WORKER-SUPERVISOR PARTICLEBOARD Work Phone: [facility]10-29-2025 15:25-0400Body uqrvik91.48 kgKirk Shawzer RIDER TICKET WORKER-SUPERVISOR PARTICLEBOARD Work Phone: [facility]10-29-2025 15:25-0400Diastolic blood pduslkyv10 mm[Hg]Kirk Shawzer RIDER TICKET WORKER-SUPERVISOR PARTICLEBOARD Work Phone: [facility]10-29-2025 15:25-0400Heart rate 76 /minKyle Krotzer RIDER TICKET WORKER-SUPERVISOR PARTICLEBOARD Work Phone: [facility] [employer] Mprdsl11-57-8755 15:25-0400 Respiratory rate20 /minKyle Johnnieotzer RIDER TICKET WORKER-SUPERVISOR PARTICLEBOARD Work Phone: [facility] [employer] Caesle10-16-1177 15:25-5750DuR0% (BldA) [Mass fraction]100 %Kirk Blairotzer RIDER TICKET WORKER-SUPERVISOR PARTICLEBOARD Work Phone: [facility] [employer] Wnvsyy92-99-2246 15:25-0400Systolic blood xmbmwygd178 mm[Hg]Kirk Shawzer RIDER TICKET WORKER-SUPERVISOR PARTICLEBOARD Work Phone: [facility]01-28-2025 11:-050Body apwseg890.64 [facility] 11:28-0500Body mass index (BMI) [Ratio]26.6 kg/b7MvgakwiuhFlower Hospital01-28-2025 11:-0500Body tcmrfzghgke36.2 [degF][facility]01-28-2025 11:-0500Body .84 kgF[facility]01-28-2025 11:28-0500Diastolic blood asqrjrvr19 mm[Hg][facility] 06-07-2024 11:28-0500Heart rate96 /[facility] 06-07-2024 11:28-0500Respiratory rate18 /[facility] 06-07-2024 11:28-2929CoE5% (BldA) [Mass fraction]98 %[facility]01-28-2025 11:28-0500Systolic blood umilfyif636 mm[Hg][facility]01-03-2025 09:47-0500Diastolic blood ugehnlfa11 mm[Hg]Heber HerbertMobile Authenticationng DO Work Phone: [facility] [employer] Iunbln45-27-7293 09:47-0500Systolic blood xumkpuvo961 mm[Hg]Heber Furlong DO Work Phone: [facility]01-03-2025 09:42-0500Body gijzrk457.6 cmDennis Piedadlong DO Work Phone: [facility] [employer] FoodsBksngp27-72-7531 09:42-0500Body mass index (BMI) [Ratio]26.76 kg/p5Kzvbym Piedadlong DO Work Phone: [facility]01-03-2025 09:42-0500Body eftkvsmjgcm68.1 [degF]Heber Herbertlong DO Work Phone: [facility] Hospital[facility]01-03-2025 09:42-0500Body .21 kgDennis Furlong DO Work Phone: [facility] Hospital[facility]01-03-2025 09:42-0500Heart rate 91 /minDaichais Furlong DO Work Phone: [facility] Hospital[facility]01-03-2025 09:42-0500 Respiratory rate20 /minDennis Furlong DO Work Phone: [facility] Hospital[facility]01-03-2025 09:42-3145PcI8% (BldA) [Mass fraction]98 %Heber Furlong DO Work Phone: [facility]10-22-2024 15:40-0400Body jtsqec038.6 cmDenaminata Furlong DO Work Phone: [facility] Hospital[facility]10-22-2024 15:40-0400Body mass index (BMI) [Ratio]26.41 kg/c9Asnqmq Furlong DO Work Phone: [facility]10-22-2024 15:40-0400Body crvbkbsozux54 [degF]Heberaminata Herbertlong DO Work Phone: [facility]10-22-2024 15:40-0400Body nlvyna44.21 kgDenaminata Herbertlong DO Work Phone: [facility]10-22-2024 15:40-0400Diastolic blood jwaxwbwu76 mm[Hg]Heberaminata Herbertlong DO Work Phone: [facility]10-22-2024 15:40-0400Heart rate 82 /Cindiis Piedadlong DO Work Phone: [facility]10-22-2024 15:40-0400 Respiratory rate18 /minDennis Furlong DO Work Phone: [facility] Hospital[facility]10-22-2024 15:40-4654DrN3% (BldA) [Mass fraction]99 %Heberaminata Herbertlong DO Work Phone: [facility] HospitalPlan[facility]10-22-2024 15:40-0400Systolic blood zzjngozh494 mm[Hg]Heber Herbertlong DO Work Phone: [facility] HospitalNanoOpt[facility] Encounters Encounter DateEncounter TypeCare ProviderFacilityStart: 03-16-2025 End: 93-56-0816HdhdsbTiluuz Erin Furlong DO Work Phone: [facility] HospitalCombiMatrix [facility] Internal Medicine - Family MedicineComment on above:PsoriasisStart: 03-08-2025 End: 08-21-2947Ecpitgt encounter statusKirk Orozco RIDER TICKET WORKER-SUPERVISOR PARTICLEBOARD Work Phone: [facility] HospitalPU[facility] Biosciencetart: 03-08-2025 End: 20-19-3230Lyxlczea preventive med est patient 40-64yrsKyle Karma Orozco RIDER TICKET WORKER-SUPERVISOR PARTICLEBOARD Work Phone: [facility] Internal Medicine - Family MedicineComment on above:Well adult exam (Primary Dx); Blood tests for routine general physical examination; Encounter for screening mammogram for malignant neoplasm of breast; Psoriasis; HypercholesterolemiaStart: 03-08-2025 End: 27-22-7815Apnylewd examinationKyle Karma Orozco RIDER TICKET WORKER-SUPERVISOR PARTICLEBOARD Work Phone: [facility] HospitalS[facility] Work Phone: Start: 03-08-2025 End: 79-69-5981elykdoasswWXUFSt. [facility] Ambulatory PPGStart: 13-64-7587Fpfvtwqoj for general adult medical examination without abnormal findingsKYLE Karma [facility] Ambulatory PPGStart: 01-23-2025 End: 78-34-2040ZyfyatPvchsb G Furlong DO Work Phone: [facility] Internal Medicine - Family MedicineComment on above:PsoriasisStart: 12-07-2024 End: 41-35-2688YwxgxfIltddh G Furlong DO Work Phone: [facility] Medicine - Family MedicineComment on above:PsoriasisStart: 09-26-2024 End: 64-68-8040DwcgxzYdvnaj G Furlong DO Work Phone: [facility] Medicine - Family MedicineComment on above:PsoriasisStart: 09-01-2024 End: 47-65-5528txmvlmxlhlDBZUCH G FURLONGRegency Hospital Toledotart: 08-29-2024 End: 98-29-8060Fjegew OnlyDennis G Furlong DO Work Phone: [facility] Internal Medicine - Family MedicineComment on above:Hair loss (Primary Dx)Start: 07-06-2024 End: 82-76-1482XgtdbfBfsjly G Furlong DO Work Phone: [facility] Internal Medicine - Family MedicineComment on above:PsoriasisStart: 06-07-2024 End: 65-30-6130azyhohuzuqEcodpvyzeJ.W. [facility] Work Phone: Start: 06-07-2024 End: 02-04-2043Sjotnrk encounter [facility] Work Phone: Start: 05-13-2024 End: 74-51-6889Maomgt outpatient visit 25 minutesHeber Leon DO Work Phone: [facility] Internal Medicine - Family MedicineComment on above:Migraine with aura and without status migrainosus, not intractable (Primary Dx); Neck pain on right sideStart: 05-13-2024 End: 10-23-8857villsugombOBZDIG Erin HERBERTC[facility] Ambulatory PPGStart: 04-19-2024 End: 61-48-1970YiyvboQcjnwe G Furlong DO Work Phone: [facility] Internal Medicine - Family MedicineComment on above:PsoriasisStart: 03-01-2024 End: 62-80-3872Onphttq encounter statusHeber Leon DO Work Phone: [facility] HospitalTUTORizenh [employer] Work Phone: Start: 03-01-2024 End: 26-69-4851Gpevwrda preventive med est patient 40-64yrsDennis Erin Leon DO Work Phone: [facility] Internal Medicine - Family MedicineComment on above:Well adult exam (Primary Dx); Encounter for screening mammogram for malignant neoplasm of breast; Overweight; LPRD (laryngopharyngeal reflux disease); Psoriasis of scalpStart: 02-10-2024 End: 19-97-6718JsiaagYlzxeh G Furlong DO Work Phone: [facility] Internal Medicine - Family MedicineComment on above:PsoriasisStart: 01-10-2024 End: 65-14-9945VfwkqvVklckl G Furlong DO Work Phone: [facility] Internal Medicine - Family MedicineComment on above:PsoriasisStart: 12-10-2023 End: 44-77-8862Mbgecefzk encounterDenaminata Khan Furlong DO Work Phone: [facility] Medicine - Family MedicineStart: 12-05-2023 End: 06-52-2375OrejoxHgiwej G Furlong DO Work Phone: [facility] Internal Medicine - Family MedicineComment on above:PsoriasisStart: 10-29-2023 End: 10-70-6795HmyundPbqzqs G Furlong DO Work Phone: [facility] MedicineComment on above:PsoriasisStart: 09-28-2023 End: 99-32-0982PvaqbhVltvpd G Furlong DO Work Phone: [facility] MedicineComment on above:PsoriasisStart: 13-59-0145YoydrdQgacje G Furlong DO Work Phone: [facility] MedicineComment on above:PsoriasisStart: 05-16-2021 End: 38-09-1759elsvgtpvpdCEJEFR RAUCHFacility:O9Qykgf: 04-02-2021 End: 01-02-4577dedliiccgaWE EDITH KUNSFacility:H1 Procedures DateProcedureProcedure DetailPerforming ClinicianStart: 28-84-8314Vjzrclzxlvgfy metabolic panelKyle D Emeterio RIDER TICKET WORKER-SUPERVISOR PARTICLEBOARD Work Phone: Start: 92-86-4028Rtxxw panelKyle D Emeterio RIDER TICKET WORKER-SUPERVISOR PARTICLEBOARD Work Phone: Start: 18-46-5245Coajz depression screening assessment Kirk Emeterio RIDER TICKET WORKER-SUPERVISOR PARTICLEBOARD Work Phone: Start: 44-72-1792Vmzzh depression screening assessment Heber Herbertlong DO Work Phone: Start: 35-30-6712OsimyftxeqhRxfhzn Furlong DO Work Phone: Start: 16-40-4220Bgweb depression screening assessment Heber Leon DO Work Phone: Start: 84-42-0942Hzzlm depression screening assessment Heber Leon DO Work Phone: Plan of Treatment DateCare ActivityDetailAuthorStart: 53-43-0012QRgG,Tdap and Td Vaccines (3 - Td or Tdap)DTaP,Tdap and Td Vaccines (3 - Td or Tdap)[facility] SystemStart: 05-55-5118Qzpiourbt for malignant neoplasm of colonColon Cancer Screening 3 Year CologuardProMartins Ferry Hospital SystemStart: 75-75-7306Vidau BMI ScreeningAdult BMI ScreeningProNorth [facility] Health SystemStart: 70-94-6749Ezakxxorcf ScreeningDepression ScreeningMemorial Hospital Health SystemStart: 62-27-5463Vadqxni ScreeningTobacco ScreeningMemorial Hospital Health SystemStart: 11-21-2025 End: 42-32-3955Rvnmcjn encounter tzqqtldbu22/14/2026 3:30 PM EDT Office Visit [facility] [address] [place] [address] Heber Leon DO [address], [place] [address] [facility] - Family MedicineStart: 35-40-8802Bgtwq BMI ScreeningAdult BMI ScreeningMemorial Hospital Health SystemStart: 57-57-1071Hmybjkmlmm ScreeningDepression ScreeningMcCullough-Hyde [facility] Hospital SystemStart: 91-15-2710Lpsszbf ScreeningTobacco ScreeningMcCullough-Hyde Memorial Hospital SystemStart: 82-46-8471Naywwxldu for malignant neoplasm of breastMammogramProMartins Ferry Hospital SystemStart: 03-08-2025 End: 48-19-1036OBK Breast - bilateral screeningMammography screening bilateral with CAD Imaging Routine Encounter for screening mammogram for malignant neoplasm of breast Expected: 03/08/2025, Expires: 03/08/2026[facility] Work Phone: Comment on above:Expected: 03/08/2025, Expires: 03/08/2026Start: 86-74-5678Xbuit BMI ScreeningAdult BMI ScreeningProMartins Ferry Hospital SystemStart: 83-81-2501Xsdmwtwzdu ScreeningDepression ScreeningProMartins Ferry Hospital SystemStart: 28-67-9809Svghpxs ScreeningTobacco ScreeningProMartins Ferry Hospital SystemStart: 06-56-7196Vjwrmqdth vaccinationInfluenza VaccineProMartins Ferry Hospital SystemStart: 05-13-2024 End: 44-01-4610YE Cervical spine ViewsX-ray spine cervical 3 views or less Imaging Routine Neck pain on right side Expected: 05/13/2024, Expires: 05/13/2025[facility] Work Phone: Comment on above:Expected: 05/13/2024, Expires: 05/13/2025Start: 05-13-2024 End: 08-84-6790Glfqgyz encounter ickihrmdi65/03/2025 9:30 AM EST Office [facility] [address] [place] [address] Heber Leon DO [address] [facility] [place] [address] [facility] - Family MedicineStart: 82-76-2488Wkpdumjwslcpgm of varicella zoster vaccineZoster (Shingles) Vaccine (1 of 2)[facility] SystemComment on above:Postponed from 2019 (Patient Refused)Start: 03-01-2024 End: 08-64-3563Zlmmgtb encounter lawbnyspg16/22/2024 3:30 PM EDT Office Visit [facility] [address] [place] [address] Heber Leon DO [address] [facility], [place] [address] [facility] Internal Medicine - Family MedicineStart: 03-01-2024 End: 02-64-2308YSO Breast - bilateral screeningMammography screening bilateral with CAD Imaging Routine Encounter for screening mammogram for malignant neoplasm of breast Expected: 03/01/2024, Expires: [facility] Work Phone: Comment on above:Expected: 03/01/2024, Expires: 03/01/2025Start: 21-63-3140Csuylcvhp vaccinationInfluenza VaccineMcCullough-Hy[facility] Hospital SystemStart: 72-51-2077Njyyf BMI Follow Up PlanAdult BMI Follow Up Plan [facility] Hospital[facility]art: 42-99-7946Iwghc BMI ScreeningAdult BMI Screening [facility] SystemStart: 04-21-9742Ietkcaqkqn ScreeningDepression Screening [facility] SystemStart: 85-30-2551Rtqvlso ScreeningTobacco Screening [facility] Hospitaltart: 93-27-5026Rzlwjjegm vaccinationInfluenza Vaccine [facility] Hospitaltart: 32-24-1266Dsaaawajtjhszl of varicella zoster vaccineZoster (Shingles) Vaccine (1 of 2)[facility] Hospitaltart: 50-40-9361Srxjzlofu for malignant neoplasm of colonColon Cancer Screening 3 Year CologuardMcCullough-Hyde Memorial Hospital SystemStart: 85-62-1847Nsruedxsq for malignant neoplasm of breastMammogramMcCullough-Hy[facility] Memorial Hospital SystemStart: 20-42-1300Epzkx BMI Follow Up PlanAdult BMI Follow Up PlanMcCullough-Hyde Memorial Hospital System End: 30-95-5189Ycihvsokbpipl metabolic 2000 panel - Serum or PlasmaComprehensive metabolic panel Lab Routine Well adult exam 1 Occurrences starting 03/01/2024 until 03/01/2025[facility] HospitalComment on above:1 Occurrences starting 03/01/2024 until 03/01/2025 End: 74-74-5490Aouds panelLipid panel Lab Routine Well adult exam 1 Occurrences starting 03/01/2024 until 03/01/2025ProObjectVideo SystemComment on above:1 Occurrences starting 03/01/2024 until 03/01/2025 End: 10-94-9364XDN with ReflexTSH with Reflex Lab Routine Hair loss 1 Occurrences starting 08/29/2024 until 08/29/2025Pro[employer] Work Phone: Comment on above:1 Occurrences starting 08/29/2024 until 08/29/2025 Immunizations Immunization DateImmunizationNotesCare YaoyeelmHhexjcsj65-43-8928ppewjdf toxoid, reduced diphtheria toxoid, and acellular pertussis vaccine, adsorbedDennis Furlong DO Work Phone: [facility] HospitalObjectVideo Ueqmqc87-64-5420zakjqgn toxoid, reduced diphtheria toxoid, and acellular pertussis vaccine, adsorbedDennis Furlong DO Work Phone: [facility] HospitalNanoOpto System Payers DatePayer CategoryPayerPolicy [id number] Care Other (unspecified) [employer] [id number] Health InsuranceUNUNITED [facility] [employer] [id number] 2022-Present [phone] [address] [address] [place], [place] [id number] 2.16.840.1.428238.3.57[id number] 2.16.840.1.570021.3.57[id number] 2.16.840.1.340491.3.57[id number] 2.16.840.1.500432.3.57[id number] 2.16.840.1.790916.3.57[id number] Social History DateTypeDetailFacilityStart: 04-08-2022 End: 28-31-5031Bgjxkgj smoking status NHISEx-smokerMcCullough-Hyde Memorial Hospital SystemStart: 04-10-1989 End: 58-92-0291Ihflyei of tobacco useCurrent smokerCone Health Women's Hospitaltart: 04-10-1989 End: 48-44-0624Laijuhr of tobacco useCigarette SmokerMcCullough-Hyde Memorial Hospital System Start: 03-01-2024 End: 54-36-0114Zddfpyzayn smoked current (pack per day) - Reported0.5PSelect Medical Specialty [facility] SystemStart: 04-08-2022 End: 82-34-9639Sbmghmg use and exposureSmokeless tobacco non-userMcCullough-Hyde Memorial Hospital SystemStart: 05-13-2024 End: [id number] beverage intakeCurrent drinker of alcohol (finding) [facility] Hospitaltart: 03-01-2024 End: [id number] UtilitiesMcCullough-Hyde Memorial Hospital SystemHas the [place], gas, oil, or water company threatened to shut off services in your home in past 12MoNo [facility] SystemDo you belong to any clubs or organizations such as rastafari groups, unions, fraternal or athletic groups, or school groups?Yes [facility] SystemAre you now , , , , never or living with a partner?[facility]riedMemorial Hospital Health SystemHow often to you have a drink containing alcohol?2-3 time sa weekHocking Valley Community HospitalHow many standard drinks containing alcohol do you have on a typical day?1 or 2ProMedmedical center barbour Health SystemHow often do you have 6 or more drinks on 1 occasion?NeverProMartins Ferry Hospital SystemHow hard is it for you to pay for the very basics like food, housing, medical care, and heatingNot hard at allHocking Valley Community HospitalDo you feel stress - tense, restless, nervous, or anxious, or unable to sleep at night because yourmind is troubled all the time - these days [OSQ]Not at allCone Health Women's Hospitaltart: [id number] Commenta [facility] Hospitaltart: [phone] assigned at [facility] hospitalNot on fileCone Health Women's Hospitaltart: 12-14-2014 End: [id number] (finding)[facility] Community HospitalTobacco smoking status NHISUnknown if ever smokedMadison Health Work Phone: Start: [phone] Assigned At [facility] Clinical Notes 12-10-2023 to 03-08-2025 Note Date & [id number] History of Present illness Narrative* MIRTHA Tabor - 03/08/2025 3:30 PM EDT IM PROGRESS NOTE Patient - Evelyn Aquino Age - 54 y.o. - 1970 ASSESSMENT & PLAN Patient presented to office today for Annual Adult Wellness Visit. BMI is 26.87. 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 Education was provided on healthy nutrition. Encouraged regular cardiovascular exercise such as walking at least 30 minutes daily, 5 times per week Emphasized preventive health measures reduce health risks and promote healthy living. Goal for pt. is to achieve healthy BMI of 25 or under to reduce risk of developing diabetes and cardiovascular diseases. Flu vaccine: She denies need for flu vaccine. States she does not normally get them. 1. Blood tests for routine general physical examination - Thyroid profile includes TSH FT4; Future - Lipid profile; Future - Comprehensive metabolic panel; Future - CBC without diff; Future 2. Well adult exam (Primary) -depression screen reviewed and negative -mammogram ordered -wellness labs -reviewed Cologuard from 2023 and was negative. 3. Encounter for screening mammogram for malignant neoplasm of breast - Mammography screening bilateral with CAD; Future 4. Psoriasis -requested refill - clobetasoL (TEMOVATE) 0.05 % external solution; APPLY TOPICALLY TO THE SCALP TWICE DAILY IN THE MORNING AND IN THE EVENING Dispense: 25 mL; Refill: 0 5. Hypercholesterolemia -lipid panel Subjective PHQ-9 Summary: Little interest or pleasure in doing things: Not at all Total Score: 0 Fall Risk Assessment Summary: Low fall risk She is doing well overall. She states that she does have some intermittent SOB at work that resolves on its own. She states that she is still getting migraines, but her medications are working well and the Ubrelvy stops it almost immediately. Social History Socioeconomic History Marital status: Spouse name: Not on file Number of children: Not on file Years of education: Not on file Highest education level: Not on file Occupational History Not on file Tobacco Use Smoking status: Former Current packs/day: 0.00 Average packs/day: 0.5 packs/day for 20.0 years (10.0 ttl pk-yrs) Types: Cigarettes Start date: 04/10/1989 Quit date: 04/10/2009 Years since quittin.9 Smokeless tobacco: Never Vaping Use Vaping status: Never Used Substance and Sexual Activity Alcohol use: Yes Alcohol/week: 5.0 standard drinks of alcohol Types: 5 Cans of beer per week Comment: a week Drug use: Never Sexual activity: Yes Partners: Male Other Topics Concern Not on file Social History Narrative Not on file Social Drivers of Health Financial Resource Strain: Low Risk (03/01/2024) Overall Financial Resource Strain (CARDIA) Difficulty of Paying Living Expenses: Not hard at all Food Insecurity: No Food Insecurity (03/08/2025) Hunger Screening Food Insecurity - Worry: Never True Food Insecurity - Inability: Never True Transportation Needs: No Transportation Needs (03/01/2024) PRAPARE - Transportation Lack of Transportation (Medical): No Lack of Transportation (Non-Medical): No Physical Activity: Inactive (03/01/2024) Exercise Vital Sign Days of Exercise per Week: 0 days Minutes of Exercise per Session: 0 min Stress: No Stress Concern Present (04/08/2022) [employer] [place] [employer] - Occupational Stress Questionnaire Feeling of Stress : Not at all Social Connections: Moderately Integrated (04/08/2022) Social Connection and Isolation Panel Frequency of Communication with Friends and Family: More than three times a week Frequency of Social Gatherings with Friends and Family: More than three times a week Attends Christianity Services: Never Active Member of Clubs or Organizations: Yes Attends Club or Organization Meetings: More than 4 times per year Marital Status: Interpersonal Safety: Not At Risk (04/08/2022) Humiliation, Afraid, Rape, and Kick questionnaire Fear of Current or Ex-Partner: No Emotionally Abused: No Physically Abused: No Sexually Abused: No Housing Instability: Low Risk (03/01/2024) Housing Instability Housing Instability: No Past Medical History: Diagnosis Date Dermatitis Family History Problem Relation Age of Onset Breast cancer Mother Sarcoidosis Mother COPD Mother Arthritis Mother Crohn's disease Mother Hypertension Father Prostate cancer Father Skin cancer Father Chronic infections Father from perforated bowel and 2 years later at age 85 Fibromyalgia Sister No Known Problems Sister Polycystic ovary syndrome Daughter Obesity Daughter No Known Problems Son Past Surgical History: Procedure Laterality Date FRACTURE SURGERY HYSTERECTOMY TUBAL LIGATION Review of Systems Constitutional: Negative for activity change, appetite change and fatigue. HENT: Negative for tinnitus and trouble swallowing. Eyes: Negative for visual disturbance. Respiratory: Negative for cough, chest tightness, shortness of breath and wheezing. Cardiovascular: Negative for chest pain, palpitations and leg swelling. Gastrointestinal: Positive for constipation. Negative for abdominal pain, diarrhea, nausea and vomiting. Genitourinary: Negative for difficulty urinating. Musculoskeletal: Negative for gait problem. Skin: Negative for rash. Neurological: Negative for dizziness, syncope, speech difficulty, weakness, light-headedness, numbness and headaches. Psychiatric/Behavioral: Negative for sleep disturbance. Exam BP 110/70 (BP Site: Left Arm, BP Postition: Sitting, BP CUFF SIZE: S (7-9 inches)) Pulse 76 Temp 36.3 C (97.3 F) (Tympanic) Resp 20 Ht 167.6 cm (5' 5.98 ) Wt 75.5 kg (166 lb 6.4 oz) SpO2 100% BMI 26.87 kg/m Physical Exam Vitals and nursing note reviewed. Constitutional: General: She is not in acute distress. HENT: Head: Normocephalic and atraumatic. Right Ear: Tympanic membrane normal. Left Ear: Tympanic membrane normal. Nose: Nose normal. Mouth/Throat: Mouth: Mucous membranes are moist. Pharynx: Oropharynx is clear. Eyes: Extraocular Movements: Extraocular movements intact. Conjunctiva/sclera: Conjunctivae normal. Neck: Thyroid: No thyroid mass, thyromegaly or thyroid tenderness. Cardiovascular: Rate and Rhythm: Normal rate and regular rhythm. Pulses: Normal pulses. Pulmonary: Effort: Pulmonary effort is normal. Breath sounds: Normal breath sounds. Abdominal: Palpations: Abdomen is soft. Tenderness: There is no abdominal tenderness. Musculoskeletal: Cervical back: Normal range of motion. Right lower leg: No edema. Left lower leg: No edema. Lymphadenopathy: Cervical: No cervical adenopathy. Skin: General: Skin is warm and dry. Capillary Refill: Capillary refill takes less than 2 seconds. Neurological: General: No focal deficit present. Mental Status: She is alert and oriented to person, place, and time. Psychiatric: Mood and Affect: Mood normal. Behavior: Behavior normal. Meds Current Outpatient Medications: cetirizine (ZyrTEC) 10 mg tablet, daily., Disp: , Rfl: omeprazole (PriLOSEC) 20 mg capsule, Take 1 capsule (20 mg total) by mouth in the morning., Disp: 90 capsule, Rfl: 2 rimegepant (NURTEC ODT) 75 mg tablet,disintegrating, Dissolve 1 tablet on tongue daily as needed (migraine)., Disp: 2 tablet, Rfl: 0 ubrogepant (UBRELVY) 100 mg tablet, Take 1 tablet by mouth daily as needed (migraine)., Disp: 1 tablet, Rfl: 0 clobetasoL (TEMOVATE) 0.05 % external solution, APPLY TOPICALLY TO THE SCALP TWICE DAILY IN THE MORNING AND IN THE EVENING, Disp: 25 mL, Rfl: 0 Lab Results No visits with results within 1 Month(s) from this visit. Latest known visit with results is: Hospital Outpatient Visit on 09/01/2024 Component Date Value Ref Range Status TSH 09/01/2024 3.17 0.49 - 4.67 uIU/mL Final Other Testing No results found. Return in about 1 year (around 03/08/2026) for Annual physical. [facility] Office: [phone] This note is dictated with the use of M*Modal. Please note that this dictation was completed with computer voice recognition software. Quite often unanticipated grammatical, syntax, homophones, and other interpretive errors are inadvertently transcribed by the computer software. Please disregard these errors. Please excuse any errors that have escaped final proofreading. MIRTHA Tabor 03/09/25 1056 documented in this [facility]3]04-21-2025 Miscellaneous Notes* Telephone Encounter - Ritu Odom CMA - 08/29/2024 2:53 PM EDT Patient called and asked if you would be able to order a thyroid test due to she has been very fatigue, losing hair and emotional. * Telephone Encounter - Heber Leon DO - 08/29/2024 2:53 PM EDT Okay. I sent the order to the hospital * Telephone Encounter - Ritu Odom CMA - 08/29/2024 2:53 PM EDT Patient notified documented in this [facility]3]04-21-2025 Telephone encounter Note* Telephone Encounter - Ritu Odom CMA - 08/29/2024 2:53 PM EDT Patient called and asked if you would be able to order a thyroid test due to she has been very fatigue, losing hair and emotional. [facility]04-21-2025 Telephone encounter Note* Telephone Encounter - Heber Leon DO - 08/29/2024 2:53 PM EDT Okay. I sent the order to the hospital [facility]04-21-2025 Telephone encounter Note* Telephone Encounter - Ritu Odom CMA - 08/29/2024 2:53 PM EDT Patient notified [facility]01-03-2025 History of Present illness Narrative* Heber Leon DO - 05/13/2024 9:30 AM EST Subjective Patient ID: Evelyn Aquino is a 53 y.o. female. She is having occasional headaches 2-3 times a month. 1 is usually severe and the other 2 are usually mild. It sometimes wakes her up in the middle of the night. They start in the base of neck and goes up the right side of head and to right eye. It has been going on for years but getting more frequent and severe. She is using Ibuprofen migraine medication, essential oils and vibrating pillow. Helps a little but not as much as it used too. Last headache lasted over a day. Light and sounds sometimes bothers her. She has occasional nausea. She has missed work because of these headaches. She usually misses 1 day. 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 Migraine The following portions of the patient's history were reviewed and updated as appropriate: allergies, current medications, past family history, past medical history, past social history, past surgicalhistory, problem list, and medication reconciliation was completed including current medication andpost discharge medication. Review of Systems Eyes: Positive for photophobia. Gastrointestinal: Positive for nausea. Musculoskeletal: Positive for neck pain. Neurological: Positive for headaches. Psychiatric/Behavioral: Positive for sleep disturbance. Objective Physical Exam Vitals reviewed. Constitutional: General: She is not in acute distress. HENT: Head: Normocephalic. Cardiovascular: Rate and Rhythm: Normal rate and regular rhythm. Pulses: Normal pulses. Pulmonary: Effort: Pulmonary effort is normal. No respiratory distress. Musculoskeletal: Cervical back: Neck supple. Lymphadenopathy: Cervical: No cervical adenopathy. Neurological: General: No focal deficit present. Mental Status: She is alert and oriented to person, place, and time. Cranial Nerves: Cranial nerves 2-12 are intact. Sensory: Sensation is intact. Coordination: Coordination is intact. Gait: Gait is intact. Assessment/Plan Evelyn was seen today for migraine. Diagnoses and all orders for this visit: Migraine with aura and without status migrainosus, not intractable - rimegepant (NURTEC ODT) 75 mg tablet,disintegrating; Dissolve 1 tablet on tongue daily as needed (migraine). - ubrogepant (UBRELVY) 100 mg tablet; Take 1 tablet by mouth daily as needed (migraine). Her headaches have component of both migraine and tension. We will try migraine medication. Sampleswere given of Nurtec and Ubrelvy to try head to head. She will need FMLA for time off work. We willout 4 times a month. She usually needs 1 day off at a time. Neck pain on right side - X-ray spine cervical 3 views or less; Future Will check neck x-ray. Her father had severe neck arthritis and it impacted him late in life documented in this encounterCleveland Clinic South Pointe HospitalNanoOpto [id number] History of Present illness Narrative* Heber Leon DO - 03/01/2024 3:30 PM EDT Subjective Patient ID: Evelyn Aquino is a 53 y.o. female. Evelyn presents today for her annual wellness. She has no new medical problems to report. Her daddid pass away last June after battling multiple chronic infections due to complications from a perforated colon at colonoscopy. She uses the Temovate cream sometimes when she has a break out from the compound at work. She used solution in her hair that is working well. She was started on high dose omeprazole by the ENT for laryngopharyngeal reflux disease and it is working pretty well. She is buying it [id number] now would like a prescription for it. Annual Exam The following portions of the patient's history were reviewed and updated as appropriate: allergies, current medications, past family history, past medical history, past social history, past surgicalhistory, problem list, and medication reconciliation was completed including current medication andpost discharge medication. Review of Systems Objective Physical Exam Vitals reviewed. Constitutional: General: She is not in acute distress. Appearance: Normal appearance. She is well-groomed and overweight. She is not ill-appearing. HENT: Head: Normocephalic. Nose: Nose normal. Mouth/Throat: Mouth: Mucous membranes are moist. Eyes: General: No scleral icterus. Conjunctiva/sclera: Conjunctivae normal. Neck: Vascular: No carotid bruit. Cardiovascular: Rate and Rhythm: Normal rate and regular rhythm. Heart sounds: Normal heart sounds. No murmur heard. Pulmonary: Effort: Pulmonary effort is normal. No respiratory distress. Breath sounds: Normal breath sounds. No wheezing, rhonchi or rales. Abdominal: General: Abdomen is flat. Bowel sounds are normal. Palpations: Abdomen is soft. Tenderness: There is no abdominal tenderness. Musculoskeletal: Cervical back: Neck supple. Right lower leg: No edema. Left lower leg: No edema. Lymphadenopathy: Cervical: No cervical adenopathy. Skin: General: Skin is warm and dry. Capillary Refill: Capillary refill takes less than 2 seconds. Neurological: Mental Status: She is alert and oriented to person, place, and time. Psychiatric: Mood and Affect: Mood normal. Behavior: Behavior normal. Thought Content: Thought content normal. Judgment: Judgment normal. Assessment/Plan Evelyn was seen today for annual exam. Diagnoses and all orders for this visit: Well adult exam - Comprehensive metabolic panel; Future - Lipid panel; Future Health maintenance discussed. Check CMP and lipids. Encounter for screening mammogram for malignant neoplasm of breast - Mammography screening bilateral with CAD; Future Check mammogram to screen for breast cancer. She would pursue further evaluation and treatment. Overweight She is overweight. He would benefit from weight loss. Diet exercise and weight loss discussed. LPRD (laryngopharyngeal reflux disease) She is doing well on high dose PPI. Recommend to decrease the dose to 20 mg daily. Long-term risks of PPI discussed such as increased risk of fractures, C diff diarrhea, chronic kidney disease and dementia. Psoriasis of scalp Stable. Continue current regimen Other orders - omeprazole (PriLOSEC) 20 mg capsule; Take 1 capsule (20 mg total) by mouth in the morning. documented in this encounterHocking Valley Community Hospital09-01-2024 Miscellaneous Notes* Telephone Encounter - Heber Leon DO - 01/10/2024 9:28 AM EDT Rx sent in. She is due for a wellness documented in this encounterHocking Valley Community Hospital09-01-2024 Telephone encounter Note* Telephone Encounter - Heber Leon DO - 01/10/2024 9:28 AM EDT Rx sent in. She is due for a wellness [facility]08-01-2024 Miscellaneous Notes* Telephone Encounter - Bessie Benton - 12/10/2023 11:37 AM EDT ----- Message from GRZEGORZ Monroe sent at 01/06/2023 5:46 PM EDT ----- Regarding: wellness Due after 01/06/23 - Dolly * Telephone Encounter - Bessie Benton - 12/10/2023 11:37 AM EDT LM on VM * Telephone Encounter - Bessie Benton - 12/10/2023 11:37 AM EDT LM on VM * Telephone Encounter - Bessie Benton - 12/10/2023 11:37 AM EDT LM on VM documented in this encounterHocking Valley Community Hospital08-01-2024 Telephone encounter Note* Telephone Encounter - Bessiecory Benton - 12/10/2023 11:37 AM EDT ----- Message from GRZEGORZ Monroe sent at 01/06/2023 5:46 PM EDT ----- Regarding: wellness Due after 01/06/23 - Dolly [facility]08-01-2024 Telephone encounter Note* Telephone Encounter - Bessiecory Benton - 12/10/2023 11:37 AM EDT LM on VM [facility]08-01-2024 Telephone encounter Note* Telephone Encounter - Bessie Benton - 12/10/2023 11:37 AM EDT LM on VM [facility]08-01-2024 Telephone encounter Note* Telephone Encounter - Bessie Benton - 12/10/2023 11:37 AM EDT LM on VM [facility] SystemEvaluation [facility]* Diagnosis Migraine with aura and without status migrainosus, not intractable- Primary Neck pain on right side documented in this encounter [facility] SystemEvaluation noteNo assessment information available [facility] Work Phone: Evaluation note* Diagnosis Psoriasis Other psoriasis documented in this encounter [facility] SystemEvaluation note* Diagnosis Well adult exam- Primary Routine general medical examination at a health care facility Encounter for screening mammogram for malignant neoplasm of breast Overweight LPRD (laryngopharyngeal reflux disease) Acute laryngitis, without mention of obstruction Psoriasis of scalp documented in this encounter [facility] SystemEvaluation note* Diagnosis Psoriasis Other psoriasis documented in this encounter [facility] System[facility]* Diagnosis Psoriasis Other psoriasis documented in this encounter [facility] SystemEvaluation [facility]* Diagnosis Hair loss- Primary Unspecified alopecia documented in this encounter [facility]* Diagnosis Well adult exam- Primary Routine general medical examination at a health care facility Blood tests for routine general physical examination Laboratory examination ordered as part of a routine general medical examination Encounter for screening mammogram for malignant neoplasm of breast Psoriasis Other psoriasis Hypercholesterolemia Pure hypercholesterolemia documented in this encounter [facility]* Diagnosis Psoriasis Other psoriasis documented in this encounter [facility] SystemInstructionsNot on filedocumented in this encounter [facility] SystemInstructionsNot on filedocumented in this encounter [facility] SystemInstructionsNot on filedocumented in this encounter [facility] SystemInstructionsNot on filedocumented in this encounter [facility] SystemInstructionsNot on filedocumented in this encounter [facility] SystemInstructionsNot on filedocumented in this encounter [facility] SystemInstructionsNot on filedocumented in this encounter [facility] Summary Purpose Family History No Family History Records FoundNo Family History Records FoundNo Family History Records FoundNo Family History Records Found Advance Directives Advance Directive Response Recorded Date/ Time Advance Directives No June 07, 2024 10:42am Chief Complaint and Reason for Visit Chief Complaint Admit Date sore throat June 07, 2024 1 0:43am Additional Source Comments INFORMATION SOURCE (unrecogn ized section and content) DATE CREATED AUTHOR 03/10/2021 [facility] DATE CREATED AUTHOR AUTHOR'S ORGANIZ ATION 05/23/2021 [facility] DATE CREATED AUTHOR AUTHOR'S ORGANIZ ATION 09/07/2024 [facility] DATE CREATED AUTHOR AUTHOR'S ORGANIZ ATION 03/10/2025 [facility] Reason for Visit (unrecogniz ed section and content) ReasonCommentsMigraineOn and off.pain in the neck.using all things to helpReason CommentsMed RefillReasonCommentsAnnual ExamBumpy tattooReasonCommentswellness Care Teams (unrecognized sec tion and content) Team MemberRelationshipSpecialtyStart DateEnd Date Heber Leon DO [address], [place] [address] PCP - GeneralFamily Qxwxpeaq19/25/22 Team Status: Active Member Role Status Dates NON STAFF Primary Care Provider Active Team Status: Inactive Member Role Status Dates Bruna Santos APRN Attending Provider Active Start: June 07, 2024 End: June 07, 2024NON STAFFPrimary Care ProviderActiveStart: June 07, 2024 End: June 07, 2024Team MemberRelationshipSpecialtyStart DateEnd Date Heber Leon DO [address], [place] [address] PCP - GeneralFamily Brbqsyfp85/25/22Team MemberRelationshipSpecialtyStart Date End Date Heber Leon DO [address], [place] [address] PCP - Generalmi Dclvxxix32/25/22Team MemberRelationshipSpecialtyStart Date End Date Heber Leon DO [address], [place] [address] PCP - [facility]03/04/22Te MemberRelationshipSpecialtyStart Date End Date Heber Leon DO [address] [place] [address] [place] [address] [facility] - [facility]03/04/22Team MemberRelationshipSpecialtyStart Date End Date Heber Leon DO [address], [place] [address] [facility]03/04/22Te MemberRelationshipSpecialtyStart Date End Date Heber Leon DO [address], [place] [address] [facility]03/04/22Team MemberRelationshipSpecialtyStart Date End Date Heber Leon DO [address], [place] [address] [facility]03/04/22Te MemberRelationshipSpecialtyStart Date End Date Heber Leon DO [address], [place] [address] [facility] - [facility]03/04/22 Goals (unrecognized section and content) Goals may be documented in a n alternate section FOR RECORDS PERTAINING TO PATIENTS WHO ARE OR HAVE BEEN ENROLLED IN A CHEMICAL DEPENDENCY/SUBSTANCEABUSE PROGRAM, SOME INFORMATION MAY BE OMITTED. This clinical summary was aggregated from multiple sources. Caution should be exercised in using it in the provision of clinical care. This summary normalizes information from multiple sources, and as a consequence, information in this document may materially change the coding, format and clinical context of patient data. In addition, data may be omitted in some cases. CLINICAL DECISIONS SHOULD BE BASED ON THE PRIMARY CLINICAL RECORDS. [facility] [employer] [facility]. provides no warranty or guarantee of the accuracy or completeness of information in this document.
== END 2025-04-11 15:18 | disposition home or self-care (01) ==
LOC: MAMMO 15:17
PROVIDERS: PCP Family Medicine; Visit Provider Nurse Practitioner Family
DX: Z12.31 Encounter for screening mammogram for malignant neoplasm of breast (principal); Z80.3 Family history of malignant neoplasm of breast; Z80.42 Family history of malignant neoplasm of prostate; Z80.8 Family history of malignant neoplasm of other organs or systems
CPT/HCPCS: 77063; 77067